=== PATIENT | male | born 1975 | race Caucasian/White ===

== ENCOUNTER 2017-05-30 11:20 | Emergency (ER) | payer MEDICAID ==
[~2017-05-30] VITALS: Ht 175.3 cm; Wt 59.0 kg
[~2017-05-30 11:20] MED LIST: AUGMENTIN 500 M1 TAB PO; CIPRO 500MG TA500 MG PO; CLONAZEPAM 1MG T1 MG PO; ETODOLAC400 MG PO; FIORICET 325 MG1 TAB PO; FLEXERIL10 MG PO; HYDROCODONE-APA1 TA1 PO; HYDROCODONE1 TABLET PO; IBUPROFEN200 MG PO; IBUPROFEN800 MG PO; KEFLEX 500MG.500 MG PO; LORTAB 5/500 501 TAB PO; MEDROL 4MG. DOSE4 MG PO; NOMEDS *; ONDANSETRON ODT4 MG PO; OXYCODONE5 MG PO; PEPCID40 MG PO; PHENERGAN 25MG.25 M1 PO; PREDNISONE 20MG20 MG PO; RANITIDINE150 M1 PO; SILVADENE CREAM50 GM TP; ULTRAM 50 MG TA50 MG PO; ZOFRAN ODT4 MG PO
[2017-05-30 11:35] LABS: URINE BILIRUBIN - DIPSTICK NEGATIVE (NEG); URINE BLOOD NEGATIVE (NEG)
[2017-05-30 11:38] LABS: HEMOGLOBIN 15.7 g/dL (14.1-18.0); LYMPH # 1.9 K/mm3 (0.7-4.5); LYMPH % 21.8 % (10-50)
--- NOTE | 2017-05-30 11:44 | Emergency Room Report ---
History of Present Illness Time Seen by 113Sonia Presenting Problem in Triage Pt arrived:Walked Presenting Problem:PT C/O PAIN IN THE RIGHT LOWER QUAD THAT STARTED ON TUESDAY. 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 N Clinical Suspician of Infection? N Mental Status: 1 - Regular (Normal Baseline) Sepsis Risk:Low Sepsis Risk Have you (or family members/close friends) recently traveled outside the [place]? N If Yes, where/when: Have you had exposure to infectious disease within the past month? N TB? Other? Specify: Patient reports a six day history of right lower quadrant abdominal pain, worse over the past three to four days, and seen at an outside hospital with CT w/o contrast done, negative for appendicitis. His pain is persistent, localized, and associated with decreased appetite, so he was referred to the ED today by his nurse practitioner. No vomiting, no diarrhea, moving bowels well with no blood from above or below. Reports fever one week ago, and no fever since that time. No cough. ALLERGIES Coded Allergies: No Known Allergies (05/30/17) Home Medications Reported Medications No Known Home Medications History Medical History General CAD? No Angina: Yes [place]: No Hypertension? No Hyperlipidemia? No CHF? No DVT? No PE? No COPD? No Asthma? No Anemia? No GERD? No Gastric ulcers? No GI Bleed? No Hernia? No Thyroid Problems? No Hypothyroidism? No CVA? No Seizures? Yes Diabetes? No Renal Insuffiency? No End Stage Renal Disease? No UTI? No Stones? No BPH? No GB Disease: No Nephritic Syndrome? No Asplenia? No Hepatitis? Yes Sickle Cell Disease? No Arthritis? No Migraines? No Cataracts? No Glaucoma? No MRSA? No HIV? No TB? No Anxiety? No Depression? No Cancer? No More? 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 Immunization Hx DT/Tetanus 1-4 Years Ago Surgical Hx Previous Surgery?Y BACK SURG Social History Smoking Hx Smoker: Current Every Day Smoker Tobacco: Yes Type Cigarettes Packs/day < 1 Pack Alcohol Alcohol: No Review of Systems All Other Systems Reviewed and Negative Gastrointestinal see HPI Physical Exam Vital Signs Vital Signs Date Time Temp Pulse Resp B/P Pulse O2 O2 Flow FiO2 Ox Delivery Rate 05/30 1418 98.1 69 14 122/70 97 05/30 1351 98.1 69 14 122/70 97 05/30 1335 14 05/30 1222 69 14 125/77 99 05/30 1217 16 05/30 1123 98.1 87 16 98 General Appearance normal appearance, WD/WN, no apparent distress Eye Exam - bilateral eye normal exam, bilateral eye PERRL, bilateral eye EOMI Neck normal inspection, non-tender, supple, full range of motion Respiratory Status Yes: trachea midline, chest symmetrical, non tender chest. No: respiratory distress, tender on palpation, use of accessory muscles, pain on inspiration, pain on expiration, productive cough, non productive cough. Lung Sounds bilateral: normal breath sounds, lungs clear. Cardiovascular normal exam, regular rate/rhythm, no peripheral edema, no gallop, no JVD, no murmur, no rub Gastrointestinal normal bowel sounds, normal exam, soft, no organomegaly, no pulsatile mass, no guarding, no rebound, tenderness, mildly tender, RLQ; neg psoas or obturator signs. No rebound or guarding. Back no CVA tenderness, bowel/bladder continent, gait normal Extremities non-tender, normal range of motion, normal inspection, normal capillary refill, no pedal edema Strength 5 Upper Ext (L), 5 Upper Ext (R), 5 Lower Ext (L), 5 Lower Ext (R) Neurologic alert, normal exam, no motor/sensory deficits, oriented x 3 Glascow Coma Scale Glascow Coma Scale Response Value EYE response: 4 Spontaneously 4 MOTOR response: 6 OBEYS 6 VERBAL response: 5 Oriented & Converses 5 Total 15 Skin intact, normal color, warm/dry Medical Decision Making LABS/Meds/Orders Pt receiving controlled substance in ED? No Results/Orders Laboratory Tests 05/30/17 1130: Sodium 137, Potassium 4.5, Chloride 98, Carbon Dioxide 30, BUN 11, Creatinine 0.8, Estimated Creat Clear 103, Estimated GFR (MDRD) 108, Glucose 122 H, Calcium 9.3, Total Bilirubin 0.3, AST 44 H, ALT 59, Alkaline Phosphatase 93, Total Protein 9.2 H, Albumin 4.3, Globulin 4.9 H, Albumin/Globulin Ratio 0.9 L, Amylase 61, Lipase 345, WBC 8.5, RBC 5.78, Hgb 15.7, Hct 48.3, MCV 83.5, RDW 13.4, Plt Count 274, MPV 6.7 L, Gran % 72.1, Gran # 6.1, Lymphocytes % 21.8, Monocytes % 4.1, Eosinophils % 1.5, Basophils % 0.5, Lymphocytes # 1.9, Monocytes # 0.4, Eosinophils # 0.1, Basophils # 0.0, PUBS MCHC 32.4, MCH 27.1, Urine Color YELLOW, Urine Appearance CLEAR, Urine pH 6.5, Ur Specific [place] 1.010, Urine Protein NEGATIVE, Urine Ketones NEGATIVE, Urine Blood NEGATIVE, Urine Nitrate NEGATIVE, Urine Bilirubin NEGATIVE, Urine Urobilinogen 0.2, Ur Leukocyte Esterase NEGATIVE, Urine WBC OCC, Ur Squamous Epith Cells OCC, Urine Bacteria 2+, Urine Mucus 1+, Urine Glucose NEGATIVE Current Medication Orders Sig/Javan Start time Last Medication Dose Route Stop Time Status Admin Ketorolac 15 MG ONCE ONE 05/30 1345 DC 05/30 Tromethamine IV 05/30 1346 1335 Ketorolac 0 .STK-MED ONE 05/30 1328 DC Tromethamine .ROUTE Ketorolac 15 MG ONCE ONE 05/30 1215 DC 05/30 Tromethamine IV 05/30 1216 1217 Ondansetron HCl 4 MG ONCE ONE 05/30 1215 DC 05/30 IV 05/30 1216 1218 Ketorolac 0 .STK-MED ONE 05/30 1214 DC Tromethamine .ROUTE Ondansetron HCl 0 .STK-MED ONE 05/30 1213 DC .ROUTE Diatrizoate Meglum/ 30 ML ONCE ONE 05/30 1130 DC 05/30 Diatrizoate Sod PO 05/30 1131 1132 Sodium Chloride 10 ML PRN PRN 05/30 1130 AC IV 05/31 1126 Diatrizoate Meglum/ 0 .STK-MED ONE 05/30 1129 DC Diatrizoate Sod .ROUTE Orders Procedure Date/time Status DIET-NOTHING BY MOUTH 05/[address] ABD/PELVIS REQ 05/30 113 Complete CULTURE, URINE 05/30 1130 Active IV SALINE LOCK 05/30 1126 Active URINALYSIS/COMPLETE 05/30 1126 Complete LIPASE 05/30 1126 Complete CBC WITH AUTO DIFF 05/30 112 Complete CHEM 12 PROFILE 05/30 112 Complete AMYLASE 05/30 1126 Complete XRAY/CT/US XRAY/CT/US XRAY abdomen, pelvis CT interpretation by reviewed by me (report reviewed) Time results known: 1416 CT Results normal/NAD (stool; normal o/w) Departure Departure Time of Disposition 1416 Disposition DC Home or Self Care(routine) Clinical Impression Primary Impression: RLQ abdominal pain Condition STABLE Referrals Willian CORADO,Jean Claude Baeza Patient Instructions Acute Abdominal Pain Additional Instructions Clear liquids for a day, then recheck by Liu in one to two days; Rx Bentyl Discharge Counseling Counseled pt/family regarding diagnosis, test results, medications/RX, home care, follow up needs Prescriptions Current Visit Scripts Dicyclomine Hcl (Bentyl (Generic) 10MG Capsule) 10 MG PO Q8HP PRN cramping abdominal pain #10 CAP ED Critical Care Critical Care No at 141
[2017-05-30 11:45] LABS: URINE SQUAMOUS CELLS OCC #/hpf (OCC)
--- OUTSIDE RECORDS SUMMARY | 2017-05-30 12:10 | External Medical Summary Rpt ---
Author Author , RAMAKRISHNA DURBIN Address Unknown Phone [email or web address] Care Team Providers Care Field Reviewer Name Role Phone [employer] Unavailable Unavailable INC, [employer] Unavailable Unavailable INC, [employer] ALLRAN JR MILES, ALLRAN Unavailable Unavailable JR MILES BESSON HAO, BESSON Unavailable Unavailable HAO JC JENA, Unavailable Unavailable JC JENA ADAMARIS BAILON Unavailable Unavailable [facility] [place], [facility] [place] FRYMAN, FRYMAN Unavailable Unavailable FRYMAN EUG, FRYMAN Unavailable Unavailable EUG JR ELENA DUTTON, Unavailable Unavailable JR ELENA DUTTON [facility] Unavailable Unavailable INC, [facility] Un[facility] Un[facility], [facility], Unavailable Unavailable [facility] LUCERO ESPOSITO, LUCERO ESPOSITO Unavailable Unavailable [facility] Unavailable Unavailable [facility], [facility] YASMEEN GALVAN Unavailable Unavailable YASMEEN GALVAN Unavailable Unavailable [facility] Unavailable Unavailable INTERNAL MED, [facility] Jean Claude Dorsey MD, Unavailable Unavailable Jean Claude Dorsey MD [facility] Unavailable Unavailable ASSOCIAT, [facility] Unavailable Unavailable PLL[facility], [facility] RENUSCH, RENUSCH Unavailable Unavailable [facility], Unavailable Unavailable [facility] SOTINGEANU VERONIKA, Unavailable Unavailable SOTINGEANU VERONIKA [facility] Un[facility], [facility] Purpose Continuity of Care Document - 03-13-2013 through 2016 Problems Code Diagnosis DOS Provider Status [id number] PAIN IN 01-27-2017 [facility] [id number] UNSPECIFIED 01-27-2017 [facility] [employer] SHOULDER S INC JOINT INITIAL ENC Z720 TOBACCO USE 01-27-2017 [facility] N320 BLADDER-NEC 11-26-2016 [facility] R109 UNSPECIFIED 11-26-2016 [facility] L723 SEBACEOUS 10-11-2016 [facility] R1032 LEFT LOWER 08-09-2016 [facility] R112 NAUSEA WITH 08-09-2016 [facility] U[facility]PECIFIED [facility] ASS R319 HEMATURIA 08-09-2016 [facility] UNSPECIFIED PHYSICIANS, [facility] L559 SUNBURN 03-31-2016 [facility]PECIFIED [facility], [facility] I10 ESSENTIAL 02-05-2016 [facility] P N R079 CHEST PAIN 02-05-2016 [facility] UNSPECIFIED PHYSICIANS, [facility] K920 HEMATEMESIS 12-11-2015 [facility] R1012 LEFT UPPER 12-11-2015 [facility] PAIN GROUP R1013 EPIGASTRIC 12-11-2015 [facility] PAIN [facility]YSIC[facility]ANS GROUP E870 HYPEROSMOLA 12-03-2015 [facility] LITY AND PHYSICIANS HYPERNATREM GROUP [place] R531 WEAKNESS 12-03-2015 [facility] K921 MELENA 11-27-2015 [facility] Q619 CYSTIC 11-27-2015 [place] [facility] DISEASE INC UNSPECIFIED B1920 UNS VIRAL 11-24-2015 [facility] HEPATITIS C PHYSICIANS WITHOUT GROUP HEPATIC COMA 39695 OTHER 01-22-2015 [facility] 26075 OTHER 01-22-2015 [facility] 7840 HEADACHE 01-22-2015 [facility] 7905 OTHER 01-11-2015 [place] NON[facility]IFIC [facility] ABNORMAL INTERNAL SERUM MED ENZYME LEVELS 68928 OTHER&UNSPE 01-11-2015 [facility] NONSPECIFIC INC IMMUNOLOGIC AL FINDINGS 40563 ESOPHAGEAL 01-03-2015 [place] REFLUX [facility] INTERNAL MED 7850 UNSPECIFIED 01-03-2015 [place] [facility] TACHYCARDIA INTERNAL MED 63185 UNSPECIFIED 12-30-2014 [facility] CYSTIC INC KIDNEY DISEASE 17700 HEMATURIA 12-22-2014 [facility] UNSPECIF[facility] MEDICAL IMAGING ASS 94802 ABDOMINAL 12-22-2014 [facility] PA[facility] OTHER MEDICAL SPECIFIED IMAGING ASS SITE 2449 UNSPECIFIED 12-14-2014 ARANAKalina CLEMENTE HYPOTHYROID ISM 214.1 214.1 03-13-2013 [place] LIPOMA SKIN [facility] 716.96 716.96 03-13-2013 [facility] ARTHROPATHY [facility] G40.909 EPILEPSY, UNSP, NOT INTRACTABLE , WITHOUT STATUS EPILEPTICUS J01.90 ACUTE SINUSITIS, UNSPECIFIED K75.9 INFLAMMATOR Y LIVER DISEASE, UNSPECIFIED K92.0 HEMATEMESIS M25.511 PAIN IN RIGHT SHOULDER N20.1 CALCULUS OF URETER R07.89 OTHER CHEST PAIN R10.9 UNSPECIFIED ABDOMINAL PAIN R31.9 HEMATURIA, UNSPECIFIED Allergies, Adverse Reactions, Alerts Type Allergy to substance Adverse Reaction to Substance Substance Reaction Severity INGREDIENT: NO KNOWN Unknown Unknown - NO KNOWN DRUG ALLERGY Medications Na ND Rx Da Fi Fi Am Da Di Ph RX Ph St me C No te ll ll ou ys ag ar # ys at rm s nt no ma ic us Or Da si cy ia de te s n re d CY 00 03 04 20 10 00 EA Ac CL 37 -2 -[address] ti OB 80 4- 1- 00 00 SI ve EN 75 20 20 48 DE ZA 11 17 17 11 HI 0 24 PH IN AR E MA 10 CY MG OF CY TA NT BL HI ET AN A IN C IB 53 03 04 90 30 00 EA Ac UP 74 -2 -[address] ti RO 60 2- 4- 00 00 SI ve FE 46 20 20 48 DE N 60 17 17 07 80 5 71 PH 0 AR MG MA CY TA BL OF ET CY NT HI AN A IN C PA 68 01 02 30 30 00 TO Ac RO 38 -2 -1 .0 00 TA ti XE 20 3- 7- 00 06 L ve TI 09 20 20 85 CA NE 80 17 17 22 RE 1 72 HC PH L AR 20 MA CY MG #1 TA BL ET WV 65 12 12 0 20 10 EA 46 SC Ac NO 86 -1 -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 77 YM ti AM 60 5- 5- 00 SI 73 AN ve ET 27 20 20 0 DE HO 20 16 16 EU XA 5 PH GO ZO AR ND LE MA A -T CY F MP OF DS CY TA NT BL HI ET AN A MU 00 12 12 0 22 5 EA 46 FR Ac PI 09 -0 -[address] 77 YM ti RO 31 5- 5- 00 SI 74 AN ve CI 01 20 20 0 DE N 04 16 16 EU 2% 2 PH GO AR ND OI MA A NT CY F ME NT OF CY NT HI AN A TR 00 05 0 No AM 09 -1 AD 30 4- Lo OL 05 20 ng 80 13 er 50 1H MG Ac ti TA ve BL ET TA KE HO ME IN 51 05 0 No DO 07 -1 ME 90 4- Lo TH 19 20 ng AC 02 13 er IN 0 Ac 25 ti ve MG CA PS UL E Vital Signs 03-13-2013 21:28 Name Value Interpretat Reference Comment ion Range BP 82 mm[Hg] Diastolic BP Systolic 110 mm[Hg] Heart 92 /min Rate/Pulse O2% 99 % Respiratory 18 /min Rate Results Labs Lab Lab Date Result Refere Interp Status Commen Order Detail nces retati t Range on Urinalysis dipstick W Reflex Microscopic panel in Urine (05-30-2017 11:30) Bacteri 2+ O complet a 017 ed [Presen 11:30 ce] in Urine sedimen t by Light microsc opy Mucus 1+ NONE complet [Presen 017 ed ce] in 11:30 Urine sedimen t by Light microsc opy Epithel OCC OCC complet ial 017 ed cells.s 11:30 quamous [Presen ce] in Urine sedimen t by Microsc opy high power field Urinalysis dipstick W Reflex Microscopic panel in Urine (05-30-2017 11:30) Appeara CLEAR CLEAR complet nce of 017 ed Urine 11:30 Bilirub NEGATIV NEG complet in 017 E ed [Presen 11:30 ce] in Urine by Test strip Erythro NEGATIV NEG complet cytes 017 E ed [Presen 11:30 ce] in Urine Color YELLOW YELLOW complet of 017 ed Urine 11:30 Ketones NEGATIV NEG complet 017 E ed [Presen 11:30 ce] in Urine by Automat ed test strip Mucus NEGATIV NEG complet [Presen 017 E ed ce] in 11:30 Urine sedimen t by Light microsc opy Nitrite NEGATIV NEG complet 017 E ed [Presen 11:30 ce] in Urine by Test strip Urobili 0.2 NEG complet nogen 017 ed [Presen 11:30 ce] in Urine by Test strip Bacteria identified in Urine by Culture (11-26-2016 18:40) Collect VOID complet ion 017 ed method 18:40 [Type] of Specime n STATUS PRELIMI complet 017 NARY ed 18:40 RESULT: NO complet 017 GROWTH ed 18:40 1ST DAY SEND Y complet PHARM/I 017 ed C 18:40 STATUS FINAL complet 017 ed 18:40 RESULT: NO complet 017 GROWTH ed 18:40 2ND DAY RESULTE JBG complet D BY 017 ed 18:40 SEND TO Y complet ER 017 ed 18:40 Urinalysis dipstick W Reflex Microscopic panel in Urine (11-26-2016 18:40) Color LT. NL: complet of 017 YELL Negativ ed Urine 18:40 e Appeara CLEAR NL: complet nce of 017 Negativ ed Urine 18:40 e Glucose NEG NL: complet 017 Negativ ed [Mass/v 18:40 e olume] in Urine by Test strip Bilirub NEG NL: complet in 017 Negativ ed [Presen 18:40 e ce] in Urine by Test strip Ketones NEG NL: complet 017 Negativ ed [Presen 18:40 e ce] in Serum or Plasma Specifi <=1.005 NL: complet c 017 1.00 >= ed gravity 18:40 1.030 of Urine Hemoglo 3+ NL: Abnorma complet bin 017 Negativ l ed [Presen 18:40 e ce] in Urine by Test strip pH of 6.0 NL: complet Urine 017 ed by Test 18:40 strip Protein NEG NL: complet 017 Negativ ed [Presen 18:40 e ce] in Urine by Test strip Urobili 0.2 NL: 0.2 complet nogen 017 - 1.0 ed [Mass/v 18:40 olume] in Urine by Test strip Nitrite NEG NL: complet 017 Negativ ed [Presen 18:40 e ce] in Urine by Test strip Leukocy NEG NL: complet ivan 017 Negativ ed [#/volu 18:40 e me] in Blood by Automat ed count Leukocy RARE NL: complet ivan 017 NEGATIV ed [#/volu 18:40 E me] in Blood by Automat ed count Erythro RARE NL: complet cytes 017 NEGATIV ed [#/volu 18:40 E me] in Blood by Automat ed count Epithel RARE NL: complet ial 017 NEGATIV ed cells 18:40 E [#/area ] in Urine sedimen t by Microsc opy high power field Bacteri NEGATIV NL: complet a 017 E NEGATIV ed [#/area 18:40 E ] in Urine sedimen t by Microsc opy high power field Additio VOIDED complet nal 017 ed comment 18:40 s RFC CULTURE C&S Abnorma complet SETUP 017 ORDER l ed 18:40 Procedures Procedure DOS Code Location Performer Comment THERAPEUT 32651 [facility] PROPHYLAC INC INC TIC/DX INJECTION SUBQ/IM SHOULDER L3650 [facility] 7 TECHNOLOG TECHNOLOG FIG 8 IES INC IES INC ABDUCT RESTRAINE R PREFAB UNCLASSIF J3490 [facility] IED DRUGS 7 [facility] INC INC RADEX 29542 [facility] SHOULDER 7 [facility] COMPLETE INC INC MINIMUM 2 VIEWS THERAPEUT 69267 [facility] IC 7 PHYSICIAN PHYSICIAN PROPHYLAC S GROUP S GROUP TIC/DX INJECTION SUBQ/[place] [address] [facility] ABDOMEN & 7 PELVIS RADIOLOGY RADIOLOGY W/[place] [address] [facility] ABDOMEN & 6 MEDICAL JEAN PELVIS IMAGING W/O ASS CONTRAST MATERIAL URNLS DIP 96312 [facility] 6 [facility] STICK/TAB INC INC [place] [address] [facility] LIPASE 6 [place] [address] T[facility] INFUSION 6 [facility] THERAPY/P INC INC ROPHYLAXI S /DX 1ST TO 1 HR THERAPEUT 59638 T[facility] IC 6 [facility] INJECTION INC [place] [address] [facility] AMYLASE 6 [facility] INC INC COMPREHEN 87532 [facility] SIVE 6 [facility] METABOLIC INC INC PANEL BLOOD 65792 [facility] COUNT 6 [facility] COMPLETE INC INC AUTO&AUTO DIFRNTL WBC UNCLASSIF J3490 [facility] IED DRUGS 6 [facility] INC INC UNCLASSIF J3490 T[facility] IED DRUGS 6 [facility] INC INC BLOOD 94700 [facility] COUNT 6 [facility] COMPLETE INC INC AUTO&[place] [address] [facility] TROPONIN 6 [facility] QUANTITAT INC INC VICKY ECG 90333 T[facility] ROUTINE 6 [facility] ECG INC INC W/LEAST 12 LDS TRCG ONLY W/O I&R CREATINE 60633 [facility] KINASE 6 [facility] TOTAL INC INC ECG 16117 [facility] AMEZQUITA ROUTINE 6 [facility] W/LEAST P 12 LDS I&R ONLY CREATINE 51918 [facility] KINASE MB 6 [facility] FRACTION INC INC ONLY RADIOLOGI 78540 T[facility] C 6 [facility] EXAMINATI INC INC ON CHEST [place] FRONTAL COMPREHEN 59986 [facility] SIVE 6 [facility] METABOLIC INC INC PANEL COMPREHEN 70335 T[facility] SIVE 6 [facility] METABOLIC INC INC PANEL COLLECTIO 53176 [facility] N VENOUS 6 [facility] BLOOD INC INC VENIPUNCT URE BLOOD 00405 [facility] COUNT 6 [facility] COMPLETE INC INC AUTO&AUTO DIFRNTL WBC BLOOD 43337 [facility] ECSOTO COUNT 6 [facility] COMPLETE INC INC AUTO&AUTO DIFRNTL WBC LOCM Q9967 [facility] 300-399 6 [facility] MG/ML INC INC IODINE CONCENTRA TION PER ML INJECTION J2405 [facility] 6 [facility] ONDANSETR INC INC ON HCL PER 1 MG COMPREHEN 44538 [facility] SIVE 6 [facility] METABOLIC INC INC PANEL THROMBOPL 22757 [facility] ASTIN 6 [facility] TIME INC INC PARTIAL PL[place] [address] [facility] ABDOMEN & 6 [facility] PELVIS INC INC W/[place] [address] [facility] LIPASE 6 [facility] INC INC PROTHROMB 41372 [facility] IN TIME 6 [facility] INC INC URNLS DIP 10417 [facility] STICK/TAB INC [place] [address] [facility] INFUSION 6 [facility] THERAPY/P INC INC ROPHYLAXI S /DX 1ST TO 1 HR COMPREHEN 36309 [facility] SIVE 6 [facility] METABOLIC INC INC PANEL INF AGT G0432 T[facility] AB DETECT 6 [facility] EIA TECH INC INC HIV-1&/HI V-2 SCR HEPATITIS 54063 [facility] C 6 [facility] [place] [address] T[facility] THYROID 6 [facility] STIMULATI INC INC NG HORMONE TSH HEPATITIS 65658 [facility] A 6 [facility] ANTIBODY INC INC HAAB COLLECTIO 38546 T[facility] N VENOUS 6 [facility] BLOOD INC INC VENIPUNCT URE COMPREHEN 85749 [facility] SIVE 6 [facility] [place] [address] [facility] THYROXINE 6 [facility] [place] [address] [facility] AMYLASE 6 [facility] INC INC LIPID 07177 [facility] PANEL 6 [facility] INC INC BLOOD 64307 [facility] COUNT 6 [facility] COMPLETE INC INC AUTO&AUTO DIFRNTL WBC HEPATITIS 37805 [facility] B CORE 6 [facility] ANTIBODY INC INC HBCAB TOTAL HEPATITIS 13862 [facility] [place] SURF 6 [facility] [place] [address] [facility] HEPATITIS 6 [facility] B INC INC SURFACE ANTIGEN BILIRUBIN 92789 [facility] DIRECT 6 [facility] INC INC MRI BRAIN 40141 [facility] BRAIN 5 [facility] STEM W/O INC INC CONTRAST MATERIAL ELECTROEN 86457 [facility] CEPHALOGR 5 [facility] AM W/REC INC INC AWAKE&VALARIE WSY COLLECTIO 11378 T[facility] N VENOUS 5 [facility] [place] [address] [facility] THYROID 5 [facility] STIMULATI INC INC NG HORMONE TSH COMPREHEN 99561 T[facility] SIVE 5 [facility] METABOLIC INC INC PANEL IADNA 03727 [facility] HEPATITIS 5 [facility] C QUANT INC INC & [place] [address] [facility] HEAD/BRAI 5 MEDICAL JENA N W/O IMAGING CONTRAST ASS MATERIAL BLOOD 62837 [facility] COUNT 5 [facility] COMPLETE INC INC AUTO&AUTO DIFRNTL WBC 25 38501 [facility] HYDROXY 5 [facility] INCLUDES INC INC FRACTIONS IF PERFORMED CYANOCOBA 68923 [facility] DARREN 5 [facility] [address] [facility] ABDOMINAL 5 [facility] REAL INC [place] TIME W/[place] [address] [facility] ABDOMINAL 5 MEDICAL JENA REAL IMAGING TIME ASS W/[place] [address] T[facility] GREENE ABDOMEN & 5 MEDICAL JENA PELVIS IMAGING W/O ASS CONTRAST MATERIAL SBSQ 25124 [facility] 5 CARE/DAY 15 MINUTES INITIAL 51647 [facility] INPATIENT 5 CONSULT NEW/ESTAB PT 20 MIN Encounters Encounter Start End Date Code Location Performer Type Date EMERGENCY 13690 [facility] CUEVAS 7 7 PHYSICIAN DEPARTMEN S, [facility] T VISIT HIGH/URGE NT SEVERITY EMERGENCY 23761 [facility] 7 7 [facility] LOW/MODER SEVERITY [facility] - 7 7 [facility] OUTPATIEN [facility] - 7 7 [facility]PATI[facility] OFFICE 00094 [facility] T VISIT 5 INC MINUTES OFFICE 10870 [facility] BET[facility]INA [facility] 7 7 PHYSICIAN T VISIT S GROUP 25 MINUTES EMERGENCY 47253 [facility] 7 7 [place] [facility] T VISIT PHYS HIGH/URGE NT SEVERITY OFFICE 68249 [facility]SE[facility]T [facility] OUTPATIEN 6 6 PHYSICIAN MILES T VISIT S GROUP 10 MINUTES EMERGENCY 13668 [facility] 6 6 [facility] DEPARTMEN INC T VISIT HIGH/URGE NT SEVERITY HOSPITAL [facility] - 6 6 [facility] OUTPATIEN [facility] T EMERGENCY 20288 V[facility]CTOR PASCAL DEPT 6 6 PHYSICIAN U VERONIKA VISIT S, [facility] HIGH SEVERITY& THREAT [facility]IST - 6 6 [facility] OUTPATIEN INC T EMERGENCY 55219 [facility] 6 6 [facility] V[facility]IT LIMITED/M INOR PROB EMERGENCY 64425 [facility] PASCAL 6 6 PHYSICIAN U VERONIKA [facility] S, [facility] T VISIT MODERATE SEVERITY HOSPITAL [facility] - 6 6 [facility] OUTPATIEN INC T EMERGENCY 42476 VÍCTOR ESPOSITO DEPT 6 6 PHYSICIAN VISIT S, [facility] HIGH SEVERITY& THREAT [facility] EMERGENCY 84979 [facility] 6 6 [facility] DEPARTMEN INC T VISIT MODERATE SEVERITY OFFICE 90971 [facility] OUTPATIEN 6 6 PHYSICIAN EUG T VISIT S GROUP 15 MINUTES HOSPITAL [facility] - 6 6 [facility] OUTPATIEN INC T OFFICE 77242 [facility] SCHULSTAD OUTPATIEN 6 6 PHYSICIAN CAM T NEW 30 S GROUP MINUTES OFFICE 08999 [facility] OUTPATIEN 6 6 PHYSICIAN EUG T VISIT S GROUP 15 MINUTES EMERGENCY 21718 [facility] 6 6 [facility] DEPARTMEN INC T VISIT HIGH/URGE NT SEVERITY HOSPITAL [facility] - 6 6 [facility] OUTPATIEN INC T EMERGENCY 65779 VÍCTOR DTUTON DEPT 6 6 PHYSICIAN JR DURGAZ [facility]IGH SEVER[facility]& THREAT FUNJ OFFICE 16230 [facility] OUTPATIEN 6 6 PHYSICIAN EUG T VISIT S GROUP 15 MINUTES HOSPITAL [facility] - 6 6 [facility] OUTPATIEN INC T HOSPITAL [facility] - 6 6 [facility] OUTPATIEN INC T OFFICE 17877 [facility] OUTPAT[facility]EN 6 6 PHYSICIAN EUG T NEW 30 S GROUP MINUTES HOSPITAL [facility] - 5 5 [facility] OUTPATIEN INC T HOSPITAL [facility] - 5 5 [facility] OUTPATIEN INC T OFFICE 78014 [facility] 5 5 [place] [facility] VISIT INTERNAL 25 MED MINUTES OFFICE 42607 [facility] 5 5 [place] [facility] VISIT INTERNAL 25 MED MINUTES [facility] TIGIST - 5 5 [facility] OUTPATIEN [facility] OFFICE 77626 [facility] 5 5 [place] [facility] T NEW 45 INTERNAL MINUTES MED Emergency DYLON Dorsey MD (ER) 3 20:33 3 22:38 [facility]
--- OUTSIDE RECORDS SUMMARY | 2017-05-30 12:10 | External Medical Summary Rpt ---
Author Author , RAMAKRISHNA DURBIN Address Unknown Phone [email or web address] Care Team Providers Care Railroad Engineer Name Role Phone [employer] Unavailable Unavailable INC, [employer] Unavailable Unavailable INC, [employer] ALLRAN JR MILES, ALLRAN Unavailable Unavailable JR MILES BESSON HAO, BESSON Unavailable Unavailable HAO JC JENA, Unavailable Unavailable JC JENA ADAMARIS BAILON Unavailable Unavailable [facility] Unavailable [place]available [place], [facility] [place] FRYMAN, FRYMAN Unavailable Unavailable FRYMAN EUG, FRYMAN Unavailable Unavailable EUG JR ELENA DUTTON, Unavailable Unavailable JR ELENA DUTTON [facility] Unavailable Unavailable INC, [facility] Unavailable Unavailable HOSPITAL P, [facility] HOSPITAL P [facility], Unavailable Unavailable [facility] LUCERO ESPOSITO, LUCERO ESPOSITO Unavailable Unavailable [facility] Unavailable Unavailable [facility], [facility] YASMEEN GALVAN Unavailable Unavailable YASMEEN GALVAN Unavailable Unavailable [facility] Unavailable Unavailable [facility], [facility] Jean Claude Dorsey MD, Unavailable Unavailable Jean Claude Dorsey MD [facility] Unavailable Unavailable ASSOCIAT, [facility] Un[facility] Unavailable PLL[facility], [facility] RENUSCH, RENUSCH Unavailable Unavailable [facility], Unavailable Unavailable [facility] SOTINGEANU VERONIKA, Unavailable Unavailable SOTINGEANU VERONIKA [facility] Unavailable Unavailable EMERGENCY PHYS, [facility] Purpose Continuity of Care Document - 03-13-2013 through 2016 Problems Code Diagnosis DOS Provider Status [id number] PAIN IN 01-27-2017 [facility] [id number] UNSPECIFIED 01-27-2017 [facility] [employer] SHOULDER S INC JOINT INITIAL ENC Z720 TOBACCO USE 01-27-2017 [facility] N320 BLADDER-NEC 11-26-2016 [facility] R109 UNSPECIFIED 11-26-2016 [facility] L723 SEBACEOUS 10-11-2016 [facility] CYST PHYSICIANS GROUP R1032 LEFT LOWER 08-09-2016 [facility] R112 NAUSEA WITH 08-09-2016 [facility] UNSPECIFIED IMAGING ASS R319 HEMATURIA 08-09-2016 [facility] UNSPECIFIED PHYSICIANS, [facility] L559 SUNBURN 03-31-2016 [facility]PECIFIED [facility], [facility] I10 ESSENTIAL 02-05-2016 [facility] P N R079 CHEST PAIN 02-05-2016 [facility] UNSPECIFIED PHYSICIANS, [facility] K920 HEMATEMESIS 12-11-2015 [facility] GROUP R1012 LEFT UPPER 12-11-2015 [facility] PAIN GROUP R1013 EPIGASTRIC 12-11-2015 [facility] PAIN PHYSICIANS GROUP E870 HYPEROSMOLA 12-03-2015 [facility] LITY AND PHYSICIANS HYPERNATREM GROUP IA R531 WEAKNESS 12-03-2015 [facility] K921 MELENA 11-27-2015 [facility] Q619 CYSTIC 11-27-2015 [facility] DISEASE INC UNSPECIFIED B1920 UNS VIRAL 11-24-2015 [facility] HEPATITIS C PHYSICIANS WITHOUT GROUP HEPATIC COMA 81485 OTHER 01-22-2015 [facility] 44282 OTHER 01-22-2015 [facility] 7840 HEADACHE 01-22-2015 [facility] 7905 OTHER 01-11-2015 [place] [facility]IFIC [facility] ABNORMAL INTERNAL SERUM MED ENZYME LEVELS 55501 OTHER&UNSPE 01-11-2015 [facility] NONSPECIFIC INC IMMUNOLOGIC AL FINDINGS 34263 ESOPHAGEAL 01-03-2015 [place] REFLUX [facility] INTERNAL MED 7850 UNSPECIFIED 01-03-2015 [place] [facility] TACHYCARDIA INTERNAL MED 73218 UNSPECIFIED 12-30-2014 [facility] CYSTIC INC KIDNEY DISEASE 97395 HEMATURIA 12-22-2014 [facility] IM[facility] 33417 ABDOMINAL 12-22-2014 [facility] OTHER MEDICAL SPECIFIED IMAGING ASS SITE 2449 UNSPECIFIED 12-14-2014 ARANAKalina CLEMENTE HYPOTHYROID ISM 214.1 214.1 03-13-2013 [place] LIPOMA SKIN [facility] 716.96 716.96 03-13-2013 [facility] ARTHROPATHY [facility] G40.909 EPILEPSY, UNSP, NOT INTRACTABLE , WITHOUT [...] 48 DE ZA 11 17 17 11 NV 0 24 PH IN AR E MA [...] MA CY MG #1 TA BL ET TX 65 12 12 0 20 10 EA [...] Procedure DOS Code Location Performer Comment THERAPEUT 69923 [facility] PROPHYLAC INC INC TIC/DX INJECTION SUBQ/IM SHOULDER L3650 [facility] 7 TECHNOLOG TECHNOLOG FIG 8 IES INC IES INC ABDUCT RESTRAINE R PREFAB UNCLASSIF J3490 [facility] IED DRUGS 7 [facility] INC INC RADEX 45480 [facility] SHOULDER 7 [facility] COMPLETE INC INC MINIMUM 2 VIEWS THERAPEUT 28567 [facility] IC 7 PHYSICIAN PHYSICIAN PROPHYLAC S GROUP S GROUP TIC/DX INJECTION SUBQ/[place] [address] [facility] ABDOMEN & 7 [facility] RADIOLOGY W/[place] [address] [facility] ABDOMEN & 6 MEDICAL JENA PELVIS IMAGING W/O ASS CONTRAST MATERIAL URNLS DIP 21596 [facility] 6 [facility] STICK/TAB INC INC [place] [address] [facility] LIPASE 6 [place] [address] T[facility] INFUSION 6 [facility] THERAPY/P INC INC ROPHYLAXI S /DX 1ST TO 1 HR THERAPEUT 89350 [facility] IC 6 [facility] INJECTION [place] [address] [facility] AMYLASE 6 [facility] INC INC COMPREHEN 40173 [facility] SIVE 6 [facility] METABOLIC INC INC PANEL BLOOD 16266 [facility] COUNT 6 [facility] COMPLETE INC INC AUTO&AUTO DIFRNTL WBC UNCLASSIF J3490 [facility] IED DRUGS 6 [facility] INC INC UNCLASSIF J3490 T[facility] IED DRUGS 6 [facility] INC INC BLOOD 11924 [facility] COUNT 6 [facility] COMPLETE INC INC AUTO&[place] [address] [facility] TROPONIN 6 [facility] QUANTITAT INC INC VICKY ECG 86585 T[facility] ROUTINE 6 [facility] ECG INC INC W/LEAST 12 LDS TRCG ONLY W/O I&R CREATINE 81215 [facility] KINASE 6 [facility] TOTAL INC INC ECG 14664 [facility] AMEZQUITA ROUTINE 6 [facility] W/LEAST P 12 LDS I&R ONLY CREATINE 33187 [facility] KINASE MB 6 [facility] FRACTION INC INC ONLY RADIOLOGI 61103 [facility] C 6 [facility] EXAMINATI INC INC ON CHEST [place] FRONTAL COMPREHEN 27552 [facility] SIVE 6 [facility] METABOLIC INC INC PANEL COMPREHEN 99052 [facility] SIVE 6 [facility] METABOLIC INC INC PANEL COLLECTIO 05254 [facility] N VENOUS 6 [facility] BLOOD INC INC VENIPUNCT URE BLOOD 81384 [facility] COUNT 6 [facility] COMPLETE INC INC AUTO&AUTO DIFRNTL WBC BLOOD 38876 [facility] COUNT 6 [facility] COMPLETE INC INC AUTO&AUTO DIFRNTL WBC LOCM Q9967 [facility] 300-399 6 [facility] MG/ML INC INC IODINE CONCENTRA TION PER ML INJECTION J2405 [facility] 6 [facility] ONDANSETR INC INC ON HCL PER 1 MG COMPREHEN 14577 [facility] SIVE 6 [facility] METABOLIC INC INC PANEL THROMBOPL 38315 [facility] ASTIN 6 [facility] TIME INC INC PARTIAL PLAS[place] [address] [facility] ABDOMEN & 6 [facility] PELVIS INC [place] [address] [facility] LIPASE 6 [facility] INC INC PROTHROMB 21738 [facility] IN TIME 6 [facility] INC INC URNLS DIP 56185 [facility] ESC[facility] 6 [facility] STICK/TAB INC [place] [address] [facility] INFUSION 6 [facility] THERAPY/P INC INC ROPHYLAXI S /DX 1ST TO 1 HR COMPREHEN 96508 [facility] SIVE 6 [facility] METABOLIC INC INC PANEL INF AGT G0432 [facility] AB DETECT 6 [facility] EIA TECH INC INC HIV-1&/HI V-2 SCR HEPATITIS 04672 [facility] C 6 [facility] [place] [address] [facility] THYROID 6 [facility] STIMULATI INC INC NG HORMONE TSH HEPATITIS 26126 [facility] A 6 [facility] ANTIBODY INC INC HAAB COLLECTIO 23163 T[facility] N VENOUS 6 [facility] BLOOD INC INC VENIPUNCT URE COMPREHEN 09963 [facility] SIVE 6 [facility] [address] [facility] THYROXINE 6 [facility] [place] [address] [facility] AMYLASE 6 [facility] INC INC LIPID 05287 [facility] PANEL 6 [facility] INC INC BLOOD 03525 [facility] COUNT 6 [facility] COMPLETE INC INC AUTO&AUTO DIFRNTL WBC HEPATITIS 12962 [facility] B CORE 6 [facility] ANTIBODY INC INC HBCAB TOTAL HEPATITIS 05482 [facility] [place] SURF 6 [facility] [address] [facility] HEPATITIS 6 [facility] B INC INC SURFACE ANTIGEN BILIRUBIN 93396 [facility] DIRECT 6 [facility] INC INC MRI BRAIN 76861 [facility] BRAIN 5 [facility] STEM W/O INC INC CONTRAST MATERIAL ELECTROEN 51911 [facility] CEPHALOGR 5 [facility] AM W/REC INC INC AWAKE&VALARIE WSY COLLECTIO 59723 [facility] N VENOUS 5 [facility] [place] [address] [facility] THYROID 5 [facility] STIMULATI INC INC NG HORMONE TSH COMPREHEN 90011 [facility] SIVE 5 [facility] METABOLIC INC INC PANEL IADNA 45689 T[facility] HEPATITIS 5 [facility] C QUANT INC INC & [place] [address] [facility] HEAD/BRAI 5 MEDICAL JENA N W/O IMAGING CONTRAST ASS MATERIAL BLOOD 66744 [facility] COUNT 5 [facility] COMPLETE INC INC AUTO&AUTO DIFRNTL WBC 25 97099 [facility] HYDROXY 5 [facility] INCLUDES INC INC FRACTIONS IF PERFORMED CYANOCOBA 66930 [facility] DARREN 5 [facility] [place] [address] [facility] ABDOMINAL 5 [facility] REAL INC [place] TIME W/[place] [address] T[facility] GREENE ABDOMINAL 5 MEDICAL JENA REAL IMAGING TIME ASS W/[place] [address] TIANNA GREENE ABDOMEN & 5 MEDICAL JENA PELVIS IMAGING W/O ASS CONTRAST MATERIAL SBSQ 70981 [facility] 5 CARE/DAY 15 MINUTES INITIAL 08337 [facility] INPATIENT 5 CONSULT NEW/ESTAB PT 20 MIN Encounters Encounter Start End Date Code Location Performer Type Date EMERGENCY 07408 [facility] CUEVAS 7 7 PHYSICIAN DEPARTMEN S, [facility] T VISIT HIGH/URGE NT SEVERITY EMERGENCY 72333 [facility] 7 7 [facility] T VISIT LOW/MODER SEVERITY HOSPITAL [facility] - 7 7 [facility] OUTPATIEN [facility] - 7 7 [facility] OUTPATIEN [facility] T OFFICE 09315 [facility] T [facility]ISIT 5 INC MINUTES OFFICE 58356 [facility] BETTINA [facility] 7 7 PHYSICIAN T VISIT S GROUP 25 MINUTES EMERGENCY 86350 [facility] 7 7 [place] [facility] T VISIT PHYS HIGH/URGE NT SEVERITY OFFICE 54373 [facility] ROOSEVELT PRADO OUTPATIEN 6 6 PHYSICIAN MILES T VISIT S GROUP 10 MINUTES EMERGENCY 79682 [facility] 6 6 [facility] DEPARTMEN INC T VISIT HIGH/URGE NT SEVERITY HOSPITAL [facility] - 6 6 [facility] OUTPATIEN [facility] T EMERGENCY 87672 [facility] PASCAL DEPT 6 6 PHYSICIAN U VERONIKA VISIT S, [facility] HIGH SEVERITY& THREAT [facility] - 6 6 [facility] OUTPATIEN INC T EMERGENCY 23131 [facility] 6 6 [facility] INC T VISIT LIMITED/M INOR PROB EMERGENCY 58084 [facility] PASCAL 6 6 PHYSICIAN U VERONIKA [facility] S, [facility] T VISIT MODERATE SEVERITY HOSPITAL [facility] - 6 6 [facility] OUTPATIEN INC T EMERGENCY 44696 ÍVCTOR ESPOSITO DEPT 6 6 PHYSICIAN VISIT S, [facility] HIGH SEVERITY& THREAT [facility] EMERGENCY 45735 [facility] 6 6 [facility] DEPARTMEN INC T VISIT MODERATE SEVERITY OFFICE 56272 [facility] FRYMAN OUTPATIEN 6 6 PHYSICIAN EUG T VISIT S GROUP 15 MINUTES HOSPITAL [facility] - 6 6 [facility] OUTPATIEN INC T OFFICE 88627 [facility] [place] OUTPATIEN 6 6 PHYSICIAN CAM T NEW 30 S GROUP MINUTES OFFICE 45559 [facility] FRYMAN OUTPATIEN 6 6 PHYSICIAN EUG T VISIT S GROUP 15 MINUTES EMERGENCY 29822 [facility] 6 6 [facility] DEPARTMEN INC T VISIT HIGH/URGE NT SEVERITY HOSPITAL [facility] - 6 6 [facility] OUTPATIEN INC T EMERGENCY 52377 [facility] DUTTON DEPT 6 6 PHYSICIAN JR [facility] SE[facility]& THREAT FUNJ OFFICE 37500 [facility] FR[place]MAN OUTPATIEN 6 6 PHYSICIAN EUG T VISIT S GROUP 15 MINUTES HOSPITAL [facility] - 6 6 [facility] OUTPATIEN INC T HOSPITAL [facility] - 6 6 [facility] OUTPATIEN INC T OFFICE 47411 [facility] FRYMAN OUTPATIEN 6 6 PHYSICIAN EUG T NEW 30 S GROUP MINUTES HOSPITAL [facility] - 5 5 [facility] OUTPATIEN INC T HOSPITAL [facility] - 5 5 [facility] OUTPATIEN INC T OFFICE 38974 [facility] 5 [facility] T VISIT INTERNAL 25 MED MINUTES OFFICE 87491 [facility] 5 5 [facility] T VISIT INTERNAL 25 MED MINUTES [facility] - 5 5 [facility] OFF[facility] 88375 [facility]IEN 5 5 [facility] T NEW 45 INTERNAL MINUTES MED Emergency DYLON Dorsey MD (ER) 3 20:33 3 22:[address] [facility]
--- OUTSIDE RECORDS SUMMARY | 2017-05-30 12:12 | External Medical Summary Rpt ---
Demographics Preferred Language Italian Marital Status Unknown Yazdanism Affiliation Unknown Race Unknown Ethnic Group Unknown Author Author RAMAKRISHNA Address Unknown Phone Immunization Unable to retrieve immunization data due to connection failure with Immunization Registry. Please try again later.
--- OUTSIDE RECORDS SUMMARY | 2017-05-30 12:12 | External Medical Summary Rpt ---
Author Author , RAMAKRISHNA DURBIN Address Unknown Phone [email or web address] Care Team Providers Care Aerial Survey Technician Name Role Phone [employer] Unavailable Unavailable INC, [employer] Unavailable Unavailable INC, [employer] ALLRAN JR MILES, ALLRAN Unavailable Unavailable JR MILES BESSON HAO, BESSON Unavailable Unavailable HAO JC JENA, Unavailable Unavailable JC JENA ADAMARIS, ADAMARIS Unavailable Unavailable [facility] Unavailable Unavailable [place], [facility] [place] FRYMAN, FRYMAN Unavailable Unavailable FRYMAN EUG, FRYMAN Unavailable Unavailable JR ELENA DUMONT, Unavailable Unavailable JR ELENA DUTTON [facility] Unavailable Unavailable INC, [facility] Unavailable Unavailable HOSPITAL P, [facility], Unavailable Unavailable [facility] LUCEOR THOMSON Unavailable Unavailable [facility] Un[facility], [facility] ARANA CHYNA, ARANA CHYNA Unavailable Unavailable ARANA CHYNA, ARANA CHYNA Unavailable Unavailable [facility] Unavailable Unavailable INTERNAL MED, [facility] Unavailable Unavailable ASSOC[facility], [facility] Unavailable Unavailable PLL[facility], [facility] RENUSCH, RENUSCH Unavailable Unavailable [facility], Unavailable Unavailable [facility] SOTINGEANSoumya VERONIKA, Unavailable Unavailable SOTINGEANU VERONIKA [facility] Unavailable Unavailable EMERGENCY PHYS, [facility] Purpose Continuity of Care Document - 12-14-2014 through 2016 Problems Code Diagnosis DOS Provider Status [id number] PAIN IN 01-27-2017 [facility] [id number] UNSPECIFIED 01-27-2017 [facility] [employer] SHOULDER S INC JOINT INITIAL ENC Z720 TOBACCO USE 01-27-2017 [facility] N320 BLADDER-NEC 11-26-2016 SHANA Manriquez EMERGENCY OBSTRUCTION PHYS R109 UNSPECIFIED 11-26-2016 [facility] L723 SEBACEOUS 10-11-2016 [facility] CYST [facility]YSIC[facility] GROUP R1032 LEFT LOWER 08-09-2016 [facility] R112 NAUSEA WITH 08-09-2016 [place] UNSPECIFIED IM[facility]ING ASS R319 HEMATURIA 08-09-2016 [facility] UNSPECIFIED PHYSICIANS, [facility] L559 SUNBURN 03-31-2016 VÍCTOR UNSPECIFIED PHYSICIANS, [facility] I10 ESSENTIAL 02-05-2016 [facility] P N R079 CHEST PAIN 02-05-2016 VÍCTOR UNSPECIFIED PHYSICIANS, [facility] K920 HEMATEMESIS 12-11-2015 [facility] R1012 LEFT UPPER 12-11-2015 [facility] PAIN GROUP R1013 EPIGASTRIC 12-11-2015 [facility] PAIN PHYSICIANS GROUP E870 HYPEROSMOLA 12-03-2015 [facility] LITY AND PHYSICIANS HYPERNATREM GROUP IA R531 WEAKNESS 12-03-2015 [facility] K921 MELENA 11-27-2015 [facility] Q619 CYSTIC 11-27-2015 [facility] KIDNEY [facility] DISEASE INC UNSPECIFIED B1920 UNS VIRAL 11-24-2015 [facility] HEPATITIS C PHYSICIANS WITHOUT GROUP HEPATIC COMA 99128 OTHER 01-22-2015 [facility] 83772 OTHER 01-22-2015 [facility] 7840 HEADACHE 01-22-2015 [facility] 7905 OTHER 01-11-2015 [place] NON[facility]IFIC [facility] ABNORMAL INTERNAL SERUM MED ENZYME LEVELS 30064 OTHER&UNSPE 01-11-2015 [facility] NONSPECIFIC INC IMMUNOLOGIC AL FINDINGS 58086 ESOPHAGEAL 01-03-2015 [place] REFLUX VAL[facility] INTERNAL MED 7850 UNSPECIFIED 01-03-2015 [place] [facility] TACHYCARDIA INTERNAL MED 61600 UNSPECIFIED 12-30-2014 [facility] CYSTIC INC KIDNEY DISEASE 86629 HEMATURIA 12-22-2014 [place]PECIF[facility] 69403 ABDOMINAL 12-22-2014 [place] PAIN OTHER MEDICAL SPECIFIED IMAGING ASS SITE 2449 UNSPECIFIED 12-14-2014 YASMEEN CLEMENTE HYPOTHYROID ISM Medications Na ND Rx Da Fi Fi [...] 48 DE ZA 11 17 17 11 UT 0 24 PH IN AR E MA [...] MA CY MG #1 TA BL ET IN 65 12 12 0 20 10 EA [...] NT OF CY NT HI AN A Procedures Procedure DOS Code Location Performer Comment THERAPEUT 49350 [facility] IC [facility] PROPHYLAC INC INC TIC/DX INJECTION SUBQ/IM SHOULDER L3650 [facility] 7 TECHNOLOG TECHNOLOG FIG 8 IES INC IES INC ABDUCT RESTRAINE R PREFAB UNCLASSIF J3490 [facility] IED DRUGS 7 [facility] INC INC RADEX 53432 T[facility] SHOULDER 7 [facility] COMPLETE INC INC MINIMUM 2 VIEWS THERAPEUT 47618 [facility] IC 7 PHYSICIAN PHYSICIAN PROPHYLAC S GROUP S GROUP TIC/DX INJECTION SUBQ/[place] [address] [facility] ABDOMEN & 7 [facility] RAD[facility]OLOG[facility] W/O [place]OCI[place] [address] [facility] ESCOTO LIPASE 6 [facility] [place] [address] [facility] ABDOMEN & 6 [facility] PELVIS INC INC W/O CONTRAST MATERIAL COMPREHEN 49135 [facility] ESCOTO SIVE 6 [facility] [place] [address] [facility] ESCOTO AMYLASE 6 [facility] INC INC URNLS DIP 75258 [facility] ESCOTO 6 [facility] STICK/TAB INC [place] [address] [facility] ESCOTO INFUSION 6 [facility] THERAPY/P INC INC ROPHYLAXI S /DX 1ST TO 1 HR THERAPEUT 43721 [facility] IC [address] [facility] INJECTION INC INC IV PUSH EACH NEW DRUG BLOOD 91015 [facility] ESCOTO COUNT 6 [facility] COMPLETE INC INC AUTO&AUTO DIFRNTL WBC UNCLASSIF J3490 [facility] IED DRUGS 6 [facility] INC INC UNCLASSIF J3490 T[facility] ESCOTO IED DRUGS 6 [facility] [place] [address] [facility] ESCOTO TROPONIN [address] [facility] QUANTITAT INC INC VICKY RADIOLOGI [address] T[facility] [address] C [address] [facility] EXAMINATI INC INC ON CHEST SINGLE VIEW FRONTAL ECG 00663 [facility] AMEZQUITA ROUTINE 6 [facility] W/LEAST P 12 LDS I&R ONLY ECG 42917 [facility] ESCOTO ROUTINE [address] [facility] ECG INC INC W/LEAST 12 LDS TRCG ONLY W/O I&R BLOOD 16911 [facility] ESCOTO COUNT 6 [facility] COMPLETE INC INC AUTO&AUTO DIFRNTL WBC CREATINE 06863 [facility] ESCOTO KINASE MB 6 [facility] FRACTION INC INC ONLY COMPREHEN 27474 T[facility] ESCOTO SIVE 6 [facility] METABOLIC INC INC PANEL CREATINE 39870 [facility] ESCOTO KINASE 6 [facility] TOTAL INC INC COLLECTIO 77825 T[facility] ESCOTO N VENOUS 6 [facility] BLOOD INC INC VENIPUNCT URE COMPREHEN 76053 [facility] ESCOTO SIVE 6 [facility] METABOLIC INC INC PANEL BLOOD 94246 [facility] ESCOTO COUNT 6 [facility] COMPLETE INC INC AUTO&AUTO DIFRNTL WBC BLOOD 53785 [facility] ESCOTO COUNT 6 [facility] COMPLETE INC INC AUTO&[place] [address] [facility] ESCOTO INFUSION 6 [facility] THERAPY/P INC INC ROPHYLAXI S /DX [address] [place] [address] [place] [address] [facility] ESCOTO ABDOMEN & 6 [facility] PELVIS INC INC W/CONTRAS T MATERIAL LOCM Q9967 [facility] ESCOTO 300-399 6 [facility] MG/ML INC INC IODINE CONCENTRA TION PER ML PROTHROMB 19402 [facility] ESCOTO IN TIME 6 [facility] INC INC THROMBOPL 96641 [facility] ESCOTO ASTIN 6 [facility] TIME INC INC PARTIAL PLASMA/WH OLE BLOOD COMPREHEN 68895 [facility] ESCOTO SIVE 6 [facility] METABOLIC INC INC PANEL INJECTION J2405 [facility] ESCOTO 6 [facility] ONDANSETR INC INC ON HCL PER 1 MG URNLS DIP 21734 [facility] ESCOTO 6 [facility] STICK/TAB INC INC [place] [address] [facility] ESCOTO LIPASE 6 [facility] INC INC COMPREHEN 48460 T[facility] ESCOTO SIVE 6 [facility] METABOLIC INC INC PANEL INF AGT G0432 [facility] AB DETECT 6 [facility] EIA TECH INC INC HIV-1&/HI V-2 SCR HEPATITIS 54724 [facility] ESCOTO B CORE 6 [facility] ANTIBODY INC INC HBCAB TOTAL HEPATITIS 43089 T[facility]IST TIGIST B SURF 6 [facility] [address] T[facility] ESCOTO HEPATITIS 6 [facility] B INC INC SURFACE ANTIGEN HEPATITIS 13981 [facility] ESCOTO C 6 [facility] [place] [address] [facility] ESCOTO THYROXINE 6 [facility] TOTAL INC INC BLOOD 46020 [facility] ESCOTO COUNT 6 [facility] COMPLETE INC INC AUTO&AUTO DIFRNTL WBC COMPREHEN 18111 [facility] ESCOTO SIVE 6 [facility] METABOLIC INC INC PANEL BILIRUBIN 48523 [facility] ESCOTO DIRECT 6 [facility] INC INC LIPID 81617 [facility] ESCOTO PANEL 6 [place] [address] T[facility] ESCOTO THYROID 6 [facility] STIMULATI INC INC NG HORMONE TSH HEPATITIS 40008 [facility] ESCOTO A 6 [facility] ANTIBODY INC INC HAAB COLLECTIO 97901 T[facility] ESCOTO N VENOUS 6 [facility] [place] [address] [facility] ESCOTO AMYLASE 6 [facility] INC INC ELECTROEN 53233 [facility] CEPHALOGR 5 [facility] AM W/REC INC INC AWAKE&VALARIE WSY MRI BRAIN 69422 [place] [facility] BRAIN 5 MEDICAL [facility] STEM W/[place] [address] [place] [facility] HEAD/BRAI 5 MEDICAL J[facility] N W/O IMAGING CONTRAST ASS MATERIAL BLOOD 65542 [facility]OTO COUNT 5 [facility] COMPLETE INC INC AUTO&AUTO DIFRNTL WBC COLLECTIO 13283 [facility] ESCOTO N VENOUS 5 [facility] [place] [address] [facility] ESCOTO THYROID 5 [facility] STIMULATI INC INC NG HORMONE TSH IADNA 17438 [facility] ESCOTO HEPATITIS 5 [facility] C QUANT INC INC & REVERSE TRANSCRIP TION 25 53785 [facility] ESCOTO HYDROXY 5 [facility] INCLUDES INC INC FRACTIONS IF PERFORMED CYANOCOBA 33595 [facility] ESCOTO DARREN 5 [facility] VITAMIN INC INC B-12 COMPREHEN 39487 T[facility] ESCOTO SIVE 5 [facility] [place] [address] [facility] ESCOTO ABDOMINAL 5 [facility] REAL INC [place] TIME W/[place] [address] TIANNA JC ABDOMINAL 5 MEDICAL JENA REAL IMAGING TIME ASS W/[place] [address] TIANNA IBANEZUTCHER ABDOMEN & 5 MEDICAL JENA PELVIS IMAGING W/O ASS CONTRAST MATERIAL SBSQ 69181 [facility] 5 CARE/DAY [address] [facility] INPATIENT 5 CONSULT NEW/ESTAB PT 20 MIN Encounters Encounter Start End Date Code Location Performer Type Date EMERGENCY 49040 [facility] 7 7 [facility] DEPARTMEN INC T VISIT LOW/MODER SEVERITY EMERGENCY 84265 [facility] CUEVAS 7 7 PHYSICIAN DEPARTMEN S, [facility] T VISIT HIGH/URGE NT SEVERITY HOSPITAL [facility] - 7 7 [facility] OUTPATIEN INC T OFFICE 40297 [facility] 7 7 [facility] T VISIT 5 INC MINUTES HOSPITAL TIGIST - 7 7 [facility] OUTPATIEN INC T OFFICE 74843 [facility] BETTINA [facility] 7 7 PHYSICIAN T VISIT S GROUP 25 MINUTES EMERGENCY 71798 [facility] 7 7 [facility] EMERGENCY T VISIT PHYS HIGH/URGE NT SEVERITY OFFICE 08004 [facility] [place] [facility] OUTPATIEN 6 6 PHYSICIAN MILES T VISIT S GROUP 10 MINUTES EMERGENCY 26709 [facility]CTOR PASCAL DEPT 6 6 PHYSICIAN U VERONIKA VISIT S, [facility] HIGH SEVERITY& THREAT FUNJ EMERGENCY 80060 [facility] 6 6 [facility]LINE [facility]PITALMEN INC T VISIT HIGH/URGE NT SEVERITY HOSPITAL TIGIST - 6 6 [facility] OUTPATIEN [facility] T EMERGENCY 56467 [facility]CTOR PASCAL 6 6 PHYSICIAN U [facility] S, [facility] T VISIT MODERATE SEVERITY HOSPITAL T[facility]IST - 6 6 [facility] OUTPATIEN INC T EMERGENCY 29327 [facility] 6 6 [facility] T VISIT LIMITED/M INOR PROB EMERGENCY 15113 VÍCTOR ESPOSITO DEPT 6 6 PHYSICIAN VISIT S, [facility] HIGH SEVERITY& THREAT FUN HOSPITAL [facility]IST - 6 6 [facility] OUTPATIEN [facility] T EMERGENCY 69702 [facility] 6 6 [facility] T VISIT MODERATE SEVERITY OFFICE 47590 [facility] FRYMAN OUTPATIEN 6 6 PHYSICIAN EUG T VISIT S GROUP 15 MINUTES OFFICE 85543 [facility] FRYMAN OUTPATIEN 6 6 PHYSICIAN EUG T VISIT S GROUP 15 MINUTES OFFICE 04260 [facility] SCHULSTAD OUTPATIEN 6 6 PHYSICIAN CAM T NEW 30 S GROUP MINUTES HOSPITAL TIGIST - 6 6 [facility]PATIEN [facility] TIGIST - 6 6 [facility] OUTPATIEN INC T EMERGENCY 47638 VÍCTOR DUTTON DEPT 6 6 PHYSICIAN JR PARKER VISIT [facility] HIGH SEVERITY& THREAT [facility] 44420 [facility] 6 6 [facility] T VISIT HIGH/URGE NT SEVERITY HOSPITAL T[facility]IST - 6 6 [facility] OUTPATIEN INC T OFFICE 22672 [facility] FRYMAN OUTPATIEN 6 6 PHYSICIAN EUG T VISIT S GROUP 15 MINUTES HOSPITAL TIGIST - 6 6 [facility] OUTPATIEN INC T OFFICE 52638 [facility] FRYMAN OUTPATIEN 6 6 PHYSICIAN EUG T NEW 30 S GROUP MINUTES HOSPITAL TIGIST - 5 5 [facility]PATIEN [facility] T OFFICE 38094 [facility] 5 5 [facility] VISIT INTERNAL 25 MED MINUTES HOSPITAL TIGIST - 5 5 [facility] OFF[facility] 63654 [facility] 5 5 [facility] VISIT INTERNAL 25 MED MINUTES [facility] TIGIST - 5 5 [facility] OUTPATIEN [facility] OFFICE 83231 [facility] 5 5 [facility] NEW 45 INTERNAL MINUTES MED
--- OUTSIDE RECORDS SUMMARY | 2017-05-30 12:12 | External Medical Summary Rpt ---
Demographics Preferred Language Sami Marital Status Unknown Gnosticism Affiliation Unknown Race Unknown Ethnic Group Unknown Author Author RAMAKRISHNA Address Unknown Phone Immunization Unable to retrieve immunization data due to connection failure with Immunization Registry. Please try again later.
--- OUTSIDE RECORDS SUMMARY | 2017-05-30 12:12 | External Medical Summary Rpt ---
Author Author , RAMAKRISHNA DURBIN Address Unknown Phone [email or web address] Team Providers Care Lead Enterprise Architect Name Role Phone [employer] Unavailable Unavailable INC, [employer] Unavailable Unavailable INC, [employer] ALLRAN JR MILES, ALLRAN Unavailable Unavailable JR MILES BESSON HAO, BESSON Unavailable Unavailable HAO JC JENA, Unavailable Unavailable JC JENA ADAMARIS, ADAMARIS Unavailable Unavailable [facility] Unavailable [place]available [place], [facility] [place] FRYMAN, FRYMAN Unavailable Unavailable FRYMAN EUG, FRYMAN Unavailable Unavailable JR ELENA DUMONT, Unavailable Unavailable JR ELENA DUTTON [facility] Unavailable Unavailable INC, [facility] Unavailable Unavailable HOSPITAL P, [facility], Unavailable Unavailable [facility] LUCERO THOMSON Unavailable Unavailable [facility] Unavailable Unavailable [facility], [facility] ARANA CHYNA, ARANA CHYNA Unavailable Unavailable ARANA CHYNA, ARANA CHYNA Unavailable Unavailable [facility] Unavailable Unavailable [facility], [facility] Unavailable Unavailable [facility], [facility] Un[facility] Unavailable [facility], [facility] RENUSCH, RENUSCH Unavailable Unavailable [facility], Unavailable Unavailable [facility] SOTINGEANSoumya VERONIKA, Unavailable Unavailable SOTINGEANU VERONIKA [facility] Unavailable Unavailable EMERGENCY PHYS, [facility] Purpose Continuity of Care Document - 12-14-2014 through 2016 Problems Code Diagnosis DOS Provider Status [id number] PAIN IN 01-27-2017 [facility] [id number] UNSPECIFIED 01-27-2017 [facility] [employer] SHOULDER S INC JOINT INITIAL ENC Z720 TOBACCO USE 01-27-2017 [facility] N320 BLADDER-NEC 11-26-2016 SHANA Manriquez EMERGENCY OBSTRUCTION PHYS R109 UNSPECIFIED 11-26-2016 [facility] L723 SEBACEOUS 10-11-2016 [facility] R1032 LEFT LOWER 08-09-2016 [facility] R112 NAUSEA WITH 08-09-2016 [facility] UNSPECIF[facility] R319 HEMATURIA 08-09-2016 [facility] UNSPECIFIED PHYSICIANS, [facility] L559 SUNBURN 03-31-2016 [facility]CTOR UNSPECIFIED PHYSICIANS, [facility] I10 ESSENTIAL 02-05-2016 [facility] P N R079 CHEST PAIN 02-05-2016 [facility]CTOR UNSPECIFIED PHYSICIANS, [facility] K920 HEMATEMESIS 12-11-2015 [facility] R1012 LEFT UPPER 12-11-2015 [facility] PAIN GROUP R1013 EPIGASTRIC 12-11-2015 [facility] PAIN [facility] E870 HYPEROSMOLA 12-03-2015 [facility]ANS HYPERNATREM GROUP IA R531 WEAKNESS 12-03-2015 [facility] K921 MELENA 11-27-2015 [facility] Q619 CYSTIC 11-27-2015 [facility] DISEASE [facility] UNSPECIFIED B1920 UNS VIRAL 11-24-2015 [facility] HEPATITIS C PHYSICIANS WITHOUT GROUP HEPATIC COMA 50260 OTHER 01-22-2015 [facility] 90189 OTHER 01-22-2015 [facility] 7840 HEADACHE 01-22-2015 [facility] 7905 OTHER 01-11-2015 [facility] ABNORMAL INTERNAL SERUM MED ENZYME LEVELS 72364 OTHER&UNSPE 01-11-2015 [facility] NONSPECIFIC INC IMMUNOLOGIC AL FINDINGS 20010 ESOPHAGEAL 01-03-2015 [place] REFLUX [facility] INTERNAL MED 7850 UNSPECIFIED 01-03-2015 [place] TACHYCARDIA INTERNAL MED 34754 UNSPECIFIED 12-30-2014 [facility] CYSTIC INC KIDNEY DISEASE 40543 HEMATURIA 12-22-2014 [facility] 78055 ABDOMINAL 12-22-2014 [place] PAIN OTHER MEDICAL SPECIFIED IMAGING ASS SITE [...] 48 DE ZA 11 17 17 11 MN 0 24 PH IN AR E MA [...] Procedure DOS Code Location Performer Comment THERAPEUT 88086 [facility] IC 7 [facility] PROPHYLAC INC INC TIC/DX INJECTION SUBQ/IM SHOULDER L3650 [facility] 7 TECHNOLOG TECHNOLOG FIG 8 IES INC IES INC ABDUCT RESTRAINE R PREFAB UNCLASSIF J3490 [facility] IED DRUGS 7 [facility] INC INC RADEX 11274 [facility] SHOULDER 7 [facility] COMPLETE INC INC MINIMUM 2 VIEWS THERAPEUT 12176 [facility] IC 7 PHYSICIAN PHYSICIAN PROPHYLAC S GROUP S GROUP TIC/DX INJECTION SUBQ/[place] [address] [facility] ABDOMEN & 7 [facility] W/O [place]OCI[place] [address] [facility] ESCOTO LIPASE 6 [facility] [place] [address] [facility] ESCOTO ABDOMEN & 6 [facility] PELVIS INC INC W/O CONTRAST MATERIAL COMPREHEN 08773 T[facility] ESCOTO SIVE 6 [facility] [place] [address] [facility] ESCOTO AMYLASE 6 [facility] INC INC URNLS DIP 33666 [facility] ESCOTO 6 [facility] STICK/TAB INC [place] [address] [facility] ESCOTO INFUSION 6 [facility] THERAPY/P INC INC ROPHYLAXI S /DX 1ST TO 1 HR THERAPEUT 42723 [facility] ESCOTO IC 6 [facility] INJECTION INC INC IV PUSH EACH NEW DRUG BLOOD 32573 [facility]OTO COUNT 6 [facility] COMPLETE INC INC AUTO&AUTO DIFRNTL WBC UNCLASSIF J3490 [facility] IED DRUGS 6 [facility] INC INC UNCLASSIF J3490 T[facility]OTO IED DRUGS 6 [facility] [place] [address] [facility] ESCOTO TROPONIN 6 [facility] QUANTITAT INC INC VICKY RADIOLOGI 71893 T[facility] ESCOTO C 6 [facility] EXAMINATI INC INC ON CHEST SINGLE VIEW FRONTAL ECG 75323 [facility] AMEZQUITA ROUTINE 6 [facility] W/LEAST P 12 LDS I&R ONLY ECG 12821 [facility] ESCOTO ROUTINE 6 [facility] ECG INC INC W/LEAST 12 LDS TRCG ONLY W/O I&R BLOOD 47086 [facility] ESCOTO COUNT 6 [facility] COMPLETE INC INC AUTO&AUTO DIFRNTL WBC CREATINE 91897 [facility] KINASE MB 6 [facility] FRACTION INC INC ONLY COMPREHEN 83274 T[facility] ESCOTO SIVE 6 [facility] METABOLIC INC INC PANEL CREATINE 74037 [facility] KINASE 6 [facility] TOTAL INC INC COLLECTIO 81118 T[facility] N VENOUS 6 [facility] BLOOD INC INC VENIPUNCT URE COMPREHEN 94054 [facility] ESCOTO SIVE 6 [facility] METABOLIC INC INC PANEL BLOOD 08524 [facility] ESCOTO COUNT 6 [facility] COMPLETE INC INC AUTO&AUTO DIFRNTL WBC BLOOD 58430 [facility] ESCOTO COUNT 6 [facility] COMPLETE INC INC AUTO&[place] [address] T[facility] ESCOTO INFUSION 6 [facility] THERAPY/P INC INC ROPHYLAXI S /DX [address] [place] [address] [place] [address] [facility] ESC[facility] ABDOMEN & 6 [facility] PELVIS INC INC W/CONTRAS T MATERIAL LOCM Q9967 [facility] ESCOTO 300-399 6 [facility] MG/ML INC INC IODINE CONCENTRA TION PER ML PROTHROMB 57729 [facility] ESCOTO IN TIME 6 [facility] INC INC THROMBOPL 61786 [facility]OTO ASTIN 6 [facility] TIME INC INC PARTIAL PLASMA/WH OLE BLOOD COMPREHEN 26581 [facility] SIVE 6 [facility] METABOLIC INC INC PANEL INJECTION J2405 [facility] ESCOTO 6 [facility] ONDANSETR INC INC ON HCL PER 1 MG URNLS DIP 54983 [facility] ESCOTO 6 [facility] STICK/TAB INC INC [place] [address] [facility] ESC[facility] LIPASE 6 [facility] INC INC COMPREHEN 97410 T[facility] ESCOTO SIVE 6 [facility] METABOLIC INC INC PANEL INF AGT G0432 [facility] AB DETECT 6 [facility] EIA TECH INC INC HIV-1&/HI V-2 SCR HEPATITIS 48829 [facility]OTO B CORE 6 [facility] ANTIBODY INC INC HBCAB TOTAL HEPATITIS 03523 [facility]IST B SURF 6 [facility] [address] [facility] ESCOTO HEPATITIS 6 [facility] B INC INC SURFACE ANTIGEN HEPATITIS 68017 [facility] ESCOTO C 6 [facility] [place] [address] [facility] ESCOTO THYROXINE 6 [facility] TOTAL INC INC BLOOD 51536 [facility] ESCOTO COUNT 6 [facility] COMPLETE INC INC AUTO&AUTO DIFRNTL WBC COMPREHEN 41696 [facility] ESCOTO SIVE 6 [facility] METABOLIC INC INC PANEL BILIRUBIN 27182 [facility] ESCOTO DIRECT 6 [facility] INC INC LIPID 34253 [facility] ESCOTO PANEL 6 [place] [address] [facility] ESCOTO THYROID 6 [facility] STIMULATI INC INC NG HORMONE TSH HEPATITIS 59450 [facility] ESCOTO A 6 [facility] ANTIBODY INC INC HAAB COLLECTIO 17397 T[facility] ESCOTO N VENOUS 6 [facility] [place] [address] [facility] ESCOTO AMYLASE 6 [facility] INC INC ELECTROEN 67676 [facility] CEPHALOGR 5 [facility] AM W/REC INC INC AWAKE&VALARIE WSY MRI BRAIN 53984 [place] [facility] BRAIN 5 MEDICAL [facility] STEM W/[place] [address] [place] [facility] HEAD/BRAI 5 MEDICAL [facility] N W/O IMAGING CONTRAST ASS MATERIAL BLOOD 24795 [facility] ESCOTO COUNT 5 [facility] COMPLETE INC INC AUTO&AUTO DIFRNTL WBC COLLECTIO 39110 [facility] ESCOTO N VENOUS 5 [facility] [place] [address] [facility] ESCOTO THYROID 5 [facility] STIMULATI INC INC NG HORMONE TSH IADNA 16932 [facility]OTO HEPATITIS 5 [facility] C QUANT INC INC & REVERSE TRANSCRIP TION 25 03808 [facility] HYDROXY 5 [facility] INCLUDES INC INC FRACTIONS IF PERFORMED CYANOCOBA 45758 [facility] ESCOTO DARREN 5 [facility] VITAMIN INC INC B-12 COMPREHEN 78665 T[facility] SIVE 5 [facility] [place] [address] [facility] ESCOTO ABDOMINAL 5 [facility] REAL INC [place] [address] TIANNA JC ABDOMINAL 5 MEDICAL [facility] REAL IMAGING TIME ASS W/[place] [address] TIANNA IBANEZUTCHER ABDOMEN & 5 MEDICAL [facility] PELVIS IMAGING W/O ASS CONTRAST MATERIAL SBSQ 32534 [facility] 5 CARE/DAY 15 MINUTES INITIAL 34465 [facility] INPATIENT 5 CONSULT NEW/ESTAB PT 20 MIN Encounters Encounter Start End Date Code Location Performer Type Date EMERGENCY 43416 [facility] 7 7 [facility] DEPARTMEN INC T VISIT LOW/MODER SEVERITY EMERGENCY 37253 [facility] CUEVAS 7 7 PHYSICIAN DEPARTMEN S, [facility] T VISIT HIGH/URGE NT SEVERITY HOSPITAL [facility] - 7 7 [facility] OUTPATIEN INC T OFFICE 72954 [facility] 7 7 [facility] T VISIT 5 INC MINUTES HOSPITAL [facility] - 7 7 [facility] OUTPATIEN INC T OFFICE 16966 [facility] 7 7 PHYSICIAN T VISIT S GROUP 25 MINUTES EMERGENCY 06150 [facility] 7 7 [facility] EMERGENCY T VISIT PHYS HIGH/URGE NT SEVERITY OFFICE 00919 [facility] OUTPATIEN 6 6 PHYSICIAN [place] T VISIT S GROUP 10 MINUTES EMERGENCY 81095 [facility] PASCAL DEPT 6 6 PHYSICIAN U VERONIKA VISIT S, [facility] HIGH SEVERITY& THREAT FUNJ EMERGENCY 40252 [facility] 6 6 [facility]IGH[facility]URGE NT SEVERITY HOSPITAL [facility] - 6 6 [facility] OUTPATIEN [facility] T EMERGENCY 54026 [facility] PASCAL 6 6 PHYSICIAN U [facility] S, [facility] T VISIT MODERATE SEVERITY HOSPITAL [facility] - 6 6 [facility] OUTPATIEN INC T EMERGENCY 09251 [facility] 6 6 [facility] T VISIT LIMITED/M INOR PROB EMERGENCY 32856 [facility] ESPOSITO DEPT 6 6 PHYSICIAN VISIT S, [facility] HIGH SEVERITY& THREAT FUN HOSPITAL [facility] - 6 6 [facility] OUTPATIEN [facility] T EMERGENCY 34352 [facility] 6 6 [facility] T VISIT MODERATE SEVERITY OFFICE 66505 [facility] OUTPATIEN 6 6 PHYSICIAN EUG T VISIT S GROUP 15 MINUTES OFFICE 01339 [facility] OUTPATIEN 6 6 PHYSICIAN EUG T VISIT S GROUP 15 MINUTES OFFICE 87752 [facility] OUTPATIEN 6 6 PHYSICIAN CAM T NEW 30 S GROUP MINUTES HOSPITAL [facility] - 6 6 [facility] OUTPATIEN [facility] TIGIST - 6 6 [facility] OUTPATIEN INC T EMERGENCY 63561 VÍCTOR DUTTON DEPT 6 6 PHYSICIAN JR PARKER VISIT [facility] HIGH SEVERITY& THREAT [facility] 16862 [facility] 6 6 [facility] HIGH/URGE NT SEVERITY HOSPITAL [facility] - 6 6 [facility] OUTPATIEN INC T OFFICE 09178 [facility] OUTPATIEN 6 6 PHYSICIAN EUG T VISIT S GROUP 15 MINUTES HOSPITAL [facility] - 6 6 [facility] OUTPATIEN INC T OFFICE 25127 [facility] OUTPATIEN 6 6 PHYSICIAN EUG T NEW 30 S GROUP MINUTES HOSPITAL [facility] - 5 5 [facility] OUTPATIEN [facility] T OFFICE 55722 [facility] 5 5 [facility] VISIT INTERNAL 25 MED MINUTES HOSPITAL [facility]IGIST - [address] [facility] OUTPATIEN [facility] OFFICE 47768 [facility] 5 5 [facility] VISIT INTERNAL 25 MED MINUTES [facility] TIGIST - [address] [facility] OUTPATIEN [facility] OFFICE 52038 [facility] 5 5 [facility] NEW 45 INTERNAL MINUTES [facility]
--- OUTSIDE RECORDS SUMMARY | 2017-05-30 12:13 | External Medical Summary Rpt ---
Author Author RAMAKRISHNA Barreto, RAMAKRISHNA [employer] Organization [employer] Address Unknown Phone Unavailable Results Amylase [Enzymatic activity/volume] in Serum or Plasma Observa Value Referen Units Interpr Notes Date tion ce etation Range Amylase 25 - 115 U/L Normal No May 30 [Enzymati informati 2017 c on in 11:30 AM activity/ source volume] data in Serum or Plasma Comprehensive metabolic 2000 panel in Serum or Plasma Observa Value Referen Units Interpr Notes Date tion ce etation Range Albumin/G 1.1 - 1.8 No Low No May 30 lobulin informati informati 2016 [Mass on in on in 11:30 AM ratio] in source source Serum or data data Plasma Albumin 3.4 - 5.0 gm/dL Normal No May 30 [Mass/vol informati 2017 ume] in on in 11:30 AM Serum or source Plasma data Alkaline 46 - 116 U/L Normal No May 30 phosphata informati 2016 se on in 11:30 AM [Enzymati source c data activity/ volume] in Serum or Plasma Bilirubin 0.2 - 1.0 mg/dL Normal No May 30 .total informati 2016 [Mass/vol on in 11:30 AM ume] in source Serum or data Plasma Urea 7 - 18 mg/dL Normal No May 30 nitrogen informati 2016 [Mass/vol on in 11:30 AM ume] in source Serum or data Plasma Calcium 8.5 - mg/dL Normal No May 30 [Mass/vol 10.1 informati 2017 ume] in on in 11:30 AM Serum or source Plasma data Chloride 98 - 107 mmoL/L Normal No May 30 [Moles/vo informati 2017 lume] in on in 11:30 AM Serum or source Plasma data Carbon 21.0 - mmoL/L Normal No May 30 dioxide, 32.0 informati 2017 total on in 11:30 AM [Moles/vo source lume] in data Serum or Plasma Creatinin 0.70 - mg/dL Normal No May 30 e 1.30 informati 2017 [Mass/vol on in 11:30 AM ume] in source Serum or data Plasma Creatinin 50 - 200 ML/MIN Normal No May 30 e renal informati 2017 clearance on in 11:30 AM source predicted data by Cockcroft -Gault formula Estimated >60 ML/MIN No REFERENCE May 30 informati RANGE: 2017 glomerula on in >60 11:30 AM r source ML/MIN/1. filtratio data 73 SQUARE n rate METERSIf (GF this patient is -A merican, then multiply theresult by 1.210. Globulin 1.3 - 3.2 gm/dL High No May 30 [Mass/vol informati 2016 ume] in on in 11:30 AM Serum source data Glucose 74 - 106 mg/dL High No May 30 [Mass/vol informati 2016 ume] in on in 11:30 AM Serum or source Plasma data Potassium 3.5 - 5.1 mmoL/L Normal No May 30 inform2016 [Moles/vo on in 11:30 AM lume] in source Serum or data Plasma Sodium 136 - 145 mmoL/L Normal No May 30 [Moles/vo informati 2016 lume] in on in 11:30 AM Serum or source Plasma data Aspartate 15 - 37 U/L High No May 30 inform2016 aminotran on in 11:30 AM sferase source [Enzymati data c activity/ volume] in Serum or Plasma Alanine 12 - 78 U/L Normal No May 30 aminotran informati 2016 sferase on in 11:30 AM [Enzymati source c data activity/ volume] in Serum or Plasma Protein 6.4 - 8.2 gm/dL High No May 30 [Mass/vol informati 2016 ume] in on in 11:30 AM Serum or source Plasma data Lipase [Enzymatic activity/volume] in Serum or Plasma Observa Value Referen Units Interpr Notes Date tion ce etation Range Lipase 73 - 393 U/L Normal No May 30 [Enzymati informati 2017 c on in 11:30 AM activity/ source volume] data in Serum or Plasma Urinalysis dipstick W Reflex Microscopic panel in Urine Observa Value Referen Units Interpr Notes Date tion ce etation Range Appeara CLEAR CLEAR No No No May 30 nce of informa informa informa 2017 Urine tion in tion in tion in 11:30 source source source AM data data data Bacteri 2+ O No No No May 30 a informa informa informa 2016 [Presen tion in tion in tion in 11:30 ce] in source source source AM Urine data data data sedimen t by Light microsc opy Bilirub NEGATIV NEG No No No May 30 in E informa informa informa 2016 [Presen tion in tion in tion in 11:30 ce] in source source source AM Urine data data data by Test strip Erythro NEGATIV NEG No No No May 30 cytes E informa informa informa 2016 [Presen tion in tion in tion in 11:30 ce] in source source source AM Urine data data data Color YELLOW YELLOW No No No May 30 of informa informa informa 2017 Urine tion in tion in tion in 11:30 source source source AM data data data Glucose NEG No No No May 30 [Mass/vol informati informati informati 2017 ume] in on in on in on in 11:30 AM Urine by source source source Test data data data strip Ketones NEGATIV NEG mg/dL No No May 30 E informa informa 2016 [Presen tion in tion in 11:30 ce] in source source AM Urine data data by Automat ed test strip Mucus NEGATIV NEG No No No May 30 [Presen E informa informa informa 2016 ce] in tion in tion in tion in 11:30 Urine source source source AM sedimen data data data t by Light microsc opy Mucus 1+ NONE No No No May 30 [Presen informa informa informa 2016 ce] in tion in tion in tion in 11:30 Urine source source source AM sedimen data data data t by Light microsc opy Nitrite NEGATIV NEG No No No May 30 E informa informa informa 2016 [Presen tion in tion in tion in 11:30 ce] in source source source AM Urine data data data by Test strip pH of 5.0 - 8.5 No Normal No May 30 Urine informati informati 2017 on in on in 11:30 AM source source data data Protein NEG mg/dL No No May 30 [Mass/vol informati informati 2017 ume] in on in on in 11:30 AM Urine by source source Automated data data test strip Specific 1.005 - No Normal No May 30 gravity 1.030 informati informati 2017 of Urine on in on in 11:30 AM source source data data Epithel OCC OCC #/hpf No No May 30 ial informa informa 2017 cells.s tion in tion in 11:30 quamous source source AM data data [Presen ce] in Urine sedimen t by Microsc opy high power field Urobili 0.2 NEG E.U./dL No No May 30 nogen informa informa 2017 [Presen tion in tion in 11:30 ce] in source source AM Urine data data by Test strip Leukocyte O wbc/hpf No No May 30 s informati informati 2017 [#/volume on in on in 11:30 AM ] in source source Urine data data Urinalysis dipstick W Reflex Microscopic panel in Urine Observa Value Referen Units Interpr Notes Date tion ce etation Range Appeara CLEAR CLEAR No No No May 30 nce of informa informa informa 2017 Urine tion in tion in tion in 11:30 source source source AM data data data Bilirub NEGATIV NEG No No No May 30 in E informa informa informa 2016 [Presen tion in tion in tion in 11:30 ce] in source source source AM Urine data data data by Test strip Erythro NEGATIV NEG No No No May 30 cytes E informa informa informa 2016 [Presen tion in tion in tion in 11:30 ce] in source source source AM Urine data data data Color YELLOW YELLOW No No No May 30 of informa informa informa 2017 Urine tion in tion in tion in 11:30 source source source AM data data data Glucose NEG No No No May 30 [Mass/vol informati informati informati 2017 ume] in on in on in on in 11:30 AM Urine by source source source Test data data data strip Ketones NEGATIV NEG mg/dL No No May 30 E informa informa 2016 [Presen tion in tion in 11:30 ce] in source source AM Urine data data by Automat ed test strip Mucus NEGATIV NEG No No No May 30 [Presen E informa informa informa 2017 ce] in tion in tion in tion in 11:30 Urine source source source AM sedimen data data data t by Light microsc opy Nitrite NEGATIV NEG No No No May 30 E informa informa informa 2016 [Presen tion in tion in tion in 11:30 ce] in source source source AM Urine data data data by Test strip pH of 5.0 - 8.5 No Normal No May 30 Urine informati inform2016 on in on in 11:30 AM source source data data Protein NEG mg/dL No No May 30 [Mass/vol informati informati 2016 ume] in on in on in 11:30 AM Urine by source source Automated data data test strip Specific 1.005 - No Normal No May 30 gravity 1.030 informati informati 2016 of Urine on in on in 11:30 AM source source data data Urobili 0.2 NEG E.U./dL No No May 30 nogen informa informa 2016 [Presen tion in tion in 11:30 ce] in source source AM Urine data data by Test strip CBC W Auto Differential panel in Blood Observa Value Referen Units Interpr Notes Date tion ce etation Range Basophils 0 - 0.2 K/MM3 Normal No May 302016 [#/volume on in 11:30 AM ] in source Blood by data Automated count Basophils 0.1 - 2.0 % Normal No May 30 / inform2016 leukocyte on in 11:30 AM s in source Blood by data Automated count Eosinophi 0.0 - 0.4 K/mm3 Normal No May 30 ls 2016 [#/volume on in 11:30 AM ] in source Blood by data Automated count Eosinophi 0.1 - % Normal No May 30 ls/100 12.0 2016 leukocyte on in 11:30 AM s in source Blood by data Automated count Granulocy 1.3 - 8.0 K/mm3 Normal No May 30 ivan inform2016 [#/volume on in 11:30 AM ] in source Blood by data Automated count Granulocy 37.0 - % Normal No May 30 ivan/100 80.0 informati 2016 leukocyte on in 11:30 AM s in source Blood by data Automated count Hematocri 42.0 - % Normal No May 30 t [Volume 52.0 2016 on in 11:30 AM Fraction] source of Blood data Hemoglobi 14.1 - g/dL Normal No May 30 n 18.0 informati 2016 [Mass/vol on in 11:30 AM ume] in source Blood data Lymphocyt 0.7 - 4.5 K/mm3 Normal No May 30 es inform2016 [#/volume on in 11:30 AM ] in source Unspecifi data ed specimen by Automated count Lymphocyt 10 - 50 % Normal No May 30 es inform2016 [#/volume on in 11:30 AM ] in source Unspecifi data ed specimen by Automated count Erythrocy 27 - 31.2 pg Normal No May 30 te mean inform2016 corpuscul on in 11:30 AM ar source hemoglobi data n [Entitic mass] Erythrocy 31.8 - g/dl Normal No May 30 te mean 35.4 2016 corpuscul on in 11:30 AM ar source hemoglobi data n concentra tion [Mass/vol ume] by Automated count Erythrocy 82.2 - fl Normal No May 30 te mean 97.8 inform2016 corpuscul on in 11:30 AM ar volume source [Entitic data volume] by Automated count Monocytes 0.1 - 1.0 K/mm3 Normal No May 30 inform2016 [#/volume on in 11:30 AM ] in source Blood by data Automated count Monocytes 1.7 - 9.3 % Normal No May 30 /100 2016 leukocyte on in 11:30 AM s in source Blood by data Automated count Platelet 7.4 - fl Low No May 30 mean 10.4 inform2016 volume on in 11:30 AM [Entitic source volume] data in Blood by Automated count Platelets 142 - 424 K/mm3 Normal No May 302016 [#/volume on in 11:30 AM ] in source Blood data Erythrocy 4.6 - 6.2 M/mm3 Normal No May 30 ivan informati 2016 [#/volume on in 11:30 AM ] in source Amniotic data fluid Erythrocy 11.5 - % Normal No May 30 te 17.5 2016 distribut on in 11:30 AM ion width source [Entitic data volume] by Automated count Leukocyte 4.8 - K/MM3 Normal No May 30 s 10.8 informati 2016 [#/volume on in 11:30 AM ] in source Blood data CT ABD and PELVIS WITHOUT Observa Value Referen Units Interpr Notes Date tion ce etation Range CT ABD \.br\ No No No No Nov 26 and informa informa informa informa 2017 PELVIS tion in tion in tion in tion in 7:16 PM WITHOUT source source source source data data data data [facility]br\ [address]br \ [place] [address]\. br\\.br \ ------- --NAME- ------- - NUMBER SEX AGE ADMIT DISC. XRAY# F/C TYPE\.b r\ BURDEN AUGUSTA [id number] M 41 11[birth year] XMB E/R\.br \ DATE OF : [birth year] M/R# [id number] PH#: [id number]\. br\ LOCATIO N: TRANSCR IBED: 7 20:09\. br\ CT ABD and PELVIS WITHOUT [id number] COMPLET ED:11/01 05/16 20:02 RLH 58020\. br\ Diagnos is: l flank pain\.b r\\.br\ PHYSICI AN: CARRI BAILON MAR\.br \\.br\\ .br\=== ======= ======= ======= ======= ======= ======= ======= ======= ======= ======= ======\ .br\ RADIOLO GY REPORT\ .br\=== ======= ======= ======= ======= ======= ======= ======= ======= ======= ======= ======\ .br\ORD ER DATE and TIME: 017 1916\.b r\\.br\ \.br\Ex aminati on: CT abdomen /pelvis kidney stone protoco l 017\.br \\.br\H istory: 41-year -old male with left flank pain.\. br\\.br \Techni que: Noncont rast 2.5 mm thick contigu ous axial CT images were obtaine d\.br\t hrough the abdomen and pelvis. Coronal images were created from the axial\. br\data . No IV contras t was adminis tered in order to increas e sensiti vity for the\.br \detect ion of stones. In order to reduce radiati on dose to the patient , either\ .br\aut omated exposur e control was employe d or the mA or kV was adjuste d by the\.br \techno logist based on patient age and weight. \.br\\. br\Comp arison: None.\. br\\.br \Findin gs:\.br \\.br\V isualiz ed portion s of the lower chest include d in this examina tion of the\.br \abdome n and pelvis reveal no signifi cant abnorma lities. \.br\\. br\Eval uation of the solid abdomin al organs is limited without IV contras t. No\.br\ obvious liver mass is identif ied. The gallbla dder is present . Gallsto diego\.br \cannot be exclude d by CT. The pancrea s and adrenal glands have a normal\ .br\alli earance . Calcifi ed granulo mas of the spleen. Indeter minate 1.2 CM low\.br \densit y lesion of the left kidney upper pole. No stones are identif ied in the\.br \kidney , ureter, or the urinary bladder . No hydrone phrosis . Huge bladder \.br\vo lume. The bowel has a normal appeara nce. Normal appendi x. No free air or\.br\ free fluid. No enlarge d lymph nodes are identif ied.\.b r\\.br\ Bone window images reveal no aggress conor lytic or sclerot ic bone lesions .\.br\\ .br\Imp ression :\.br\\ .br\1. No renal or uretera l stones. No hydrone phrosis .\.br\\ .br\2. Huge bladder volume, suggest ing bladder outlet obstruc tion.\. br\\.br \3. Indeter minate 1.2 CM low density lesion of the left kidney upper pole. Cyst\.b r\versu s mass. Nonemer gent renal ultraso und is recomme nded for further \.br\ev aluatio n.\.br\ \.br\\. br\\.br \Electr onicall y Signed By:\.br \J. SHORTY BORJA MD,RADI OLOGIST \.br\Da te/Time : 7 20:09\. br\ Bacteria identified in Urine by Culture Observa Value Referen Units Interpr Notes Date tion ce etation Range Collect VOID No No No Nov 28 ion informa informa informa 2017 method tion in tion in tion in 10:51 [Type] source source source AM of data data data Specime n STATUS PRELIMI No No No No Nov 28 NARY informa informa informa informa 2017 tion in tion in tion in tion in 10:51 source source source source AM data data data data RESULT: NO No No No No Nov 28 GROWTH informa informa informa informa 2017 1ST DAY tion in tion in tion in tion in 10:51 source source source source AM data data data data RESULTE JBG No No No No Nov 28 D BY informa informa informa informa 2017 tion in tion in tion in tion in 10:51 source source source source AM data data data data SEND Y No No No No Nov 28 PHARM/I informa informa informa informa 2017 C tion in tion in tion in tion in 10:51 source source source source AM data data data data SEND TO Y No No No Nov 28 ER informa informa informa 2017 tion in tion in tion in 10:51 source source source AM data data data STATUS FINAL No No No No Nov 28 informa informa informa informa 2017 tion in tion in tion in tion in 10:51 source source source source AM data data data data RESULT: NO No No No No Nov 28 GROWTH informa informa informa informa 2017 2ND DAY tion in tion in tion in tion in 10:51 source source source source AM data data data data RESULTE JBG No No No No Nov 28 D BY informa informa informa informa 2017 tion in tion in tion in tion in 10:51 source source source source AM data data data data SEND Y No No No No Nov 28 PHARM/I informa informa informa informa 2017 C tion in tion in tion in tion in 10:51 source source source source AM data data data data SEND TO Y No No No Nov 28 ER informa informa informa 7.1051. 2017 tion in tion in tion in [email or web address] 10:51 source source source PLETE AM data data data Urinalysis dipstick W Reflex Microscopic panel in Urine Observa Value Referen Units Interpr Notes Date tion ce etation Range Color LT. NL: No No No Nov 26 of YELL Negativ informa informa informa 2017 Urine e tion in tion in tion in 7:07 PM source source source data data data Appeara CLEAR NL: No No No Nov 26 nce of Negativ informa informa informa 2017 Urine e tion in tion in tion in 7:07 PM source source source data data data Glucose NEG NL: No No No Nov 26 Negativ informa informa informa 2017 [Mass/v e tion in tion in tion in 7:07 PM olume] source source source in data data data Urine by Test strip Bilirub NEG NL: No No No Nov 26 in Negativ informa informa informa 2017 [Presen e tion in tion in tion in 7:07 PM ce] in source source source Urine data data data by Test strip Ketones NEG NL: No No No Nov 26 Negativ informa informa informa 2017 [Presen e tion in tion in tion in 7:07 PM ce] in source source source Serum data data data or Plasma Specifi <=1.005 NL: No No No Nov 26 c 1.00 >= informa informa informa 2017 gravity 1.030 tion in tion in tion in 7:07 PM of source source source Urine data data data Hemoglo 3+ NL: No Abnorma No Nov 26 bin Negativ informa l informa 2017 [Presen e tion in tion in 7:07 PM ce] in source source Urine data data by Test strip pH of 6.0 NL: No No No Nov 26 Urine informa informa informa 2017 by Test tion in tion in tion in 7:07 PM strip source source source data data data Protein NEG NL: No No No Nov 26 Negativ informa informa informa 2017 [Presen e tion in tion in tion in 7:07 PM ce] in source source source Urine data data data by Test strip Urobili 0.2 NL: 0.2 No No No Nov 26 nogen - 1.0 informa informa informa 2016 [Mass/v tion in tion in tion in 7:07 PM olume] source source source in data data data Urine by Test strip Nitrite NEG NL: No No No Nov 26 Negativ informa informa informa 2017 [Presen e tion in tion in tion in 7:07 PM ce] in source source source Urine data data data by Test strip Leukocy NEG NL: No No { Nov 26 ivan Negativ informa informa MICROSC 2016 [#/volu e tion in tion in OPIC 7:07 PM me] in source source Blood data data See by Below Automat ed count Leukocy RARE NL: No No No Nov 26 ivan NEGATIV informa informa informa 2016 [#/volu E tion in tion in tion in 7:07 PM me] in source source source Blood data data data by Automat ed count Erythro RARE NL: No No No Nov 26 cytes NEGATIV informa informa informa 2016 [#/volu E tion in tion in tion in 7:07 PM me] in source source source Blood data data data by Automat ed count Epithel RARE NL: No No No Nov 26 ial NEGATIV informa informa informa 2017 cells E tion in tion in tion in 7:07 PM [#/area source source source ] in data data data Urine sedimen t by Microsc opy high power field Bacteri NEGATIV NL: No No No Nov 26 a E NEGATIV informa informa informa 2016 [#/area E tion in tion in tion in 7:07 PM ] in source source source Urine data data data sedimen t by Microsc opy high power field Additio VOIDED No No No No Nov 26 nal informa informa informa informa 2017 comment tion in tion in tion in tion in 7:07 PM s RFC source source source source data data data data CULTURE C&S No No Abnorma No Nov 26 SETUP ORDER informa informa l informa 2017 tion in tion in tion in 7:07 PM source source source data data data
--- OUTSIDE RECORDS SUMMARY | 2017-05-30 12:13 | External Medical Summary Rpt ---
[...] source source source data data data data [facility]br\ [address]br \ [place] [address]\. br\\.br \ ------- --NAME- ------- - NUMBER SEX AGE ADMIT DISC. XRAY# F/C TYPE\.b r\ BURDEN AUGUSTA [id number] M 41 [birth year] XMB E/R\.br \ DATE OF : [birth year] M/R# [id number] PH#: [id number]\. br\ LOCATIO N: TRANSCR IBED: 7 20:09\. br\ CT ABD and PELVIS WITHOUT [id number] COMPLET ED:11/01 05/16 20:02 RLH 96243\. br\ Diagnos is: l flank pain\.b r\\.br\ [...] 2017 tion in tion in tion in [employer] 10:51 source source source PLETE AM data [...]
--- NOTE | 2017-05-30 14:01 | RADIOLOGY REPORT PS360 ---
CT ABD PELVIS W/O CONTRAST Prostate normal. No free fluid or other findings and pelvis HISTORY: RLQ PAIN Ordering Physician: Tamra Suazo MD Patient Age: 41 years: Male TECHNIQUE: Helical CT performed through the abdomen and pelvis following oral contrast. No IV contrast COMPARISON is made to 08/09/2016 FINDINGS lung bases appear clear with no active disease. Heart normal size. Abdomen pelvis.: Lack of IV contrast decreases sensitivity. Liver, spleen, pancreas unremarkable on these noncontrast studies with no appreciable change since 2016 Adrenals unremarkable. Gallbladder. Cannot exclude sludge. No calcified stones. No biliary ductal dilatation. No retroperitoneal adenopathy nor mesenteric adenopathy. No pelvic nor inguinal nodes. No hernia. Stomach appears satisfactory small bowel. Normal caliber with oral contrast throughout extending through the right colon.. Large bowel:. Moderate Constipation throughout.. Generous Increase stool throughout large bowel. Most pronounced stool is seen at the right colon & low-lying cecum. Normal terminal ileum. No evidence of appendicitis. Appendix appears normal.. Upper normal wall thickness at rectum most likely reflects lack of distention that may require correlation developing positive stool. Pelvis. Moderately distended bladder. No pelvic mass or adenopathy Kidneys. No urinary tract calculi nor obstruction. Osseous structures, no lesions. IMPRESSION: No acute findings abdomen or pelvis Appendix appears normal. Terminal ileum unremarkable. Increased stool throughout colon suggesting a moderate constipation. Most prominent stool is seen throughout the right colon and low-lying cecum. No inflammatory changes or significant wall thickening bowel. Upper normal wall thickness rectum most likely reflects lack of distention.
[2017-05-30 14:18] VITALS: BP 122/70
[2017-05-30] MEDS ORDERED: BENTYL GENERIC10 MG PO (14:19)
== END 2017-05-30 14:35 | disposition home or self-care (01) ==
LOC: ER 11:20
PROVIDERS: Emergency Medicine
DX: R10.31 Right lower quadrant pain (principal); Z72.0 Tobacco use
CPT/HCPCS: J2405

== ENCOUNTER 2017-06-23 09:43 | Emergency (ER) | payer MEDICAID ==
[~2017-06-23] VITALS: Ht 175.3 cm; Wt 54.4 kg
[~2017-06-23 09:43] MED LIST changes: +BENTYL GENERIC10 MG PO
[2017-06-23] MEDS ORDERED: BACTRIM DS 8001 TA1 PO (09:52)
--- NOTE | 2017-06-23 09:54 | Urgent Treatment Center Report ---
History of Present Issue Date/Time Seen by Provider 06/23/17 0950 Visit Reason Pt arrived:Walked Presenting Problem:PT STATES HAVING AREA TO LEFT FOREARM LANCED TWO NIGHTS AGO AT [place] IN [place]. STATES BEING PLACED ON BACTRIM 800MG TWO TABS BID Location if Accident: Onset of symptoms date/time:06/21/17/ or onset unknown for:MEDICAL HX UNKNOWN Have you (or family members/close friends) recently traveled outside the [facility]? N If Yes, where/when: Have you had exposure to infectious disease within the past month? TB? Other? Specify: c/o left FA red and swollen "again". Reports hx of insect sting one week ago. Tried digging stinger out with sewing needle. Site became infected. Tried waiting it out. Day 5 (night before last) went to [place] ER. reports dx abscess and cellulitis. I&D to left FA. Culture completed. No packing. Prescribed 600mg ibuprofen and "bactrim 800 and told me to take two tablets twice a day". However pt has only been taking one tablet twice a day "for fear that it would upset my stomach". Pt can't remember what pharmacy the prescription was filled at so unable to verify prescription. Since then, "hole closed up overnight". Area becoming red and tender again. Denies fever, chills, malaise, joint pain, limited ROM. PMHx of IVD use and hepatitis. Reports clean for approx 2 years and adament this isn't from IV drug use. Source patient Exam Limitations no limitations ALLERGIES Coded Allergies: No Known Allergies (05/30/17) Home Medications Reported Medications SULFAMETHOXAZOLE W/TRIMETHOPRI (Bactrim Ds Tab) 2 TABLET PO BID History Medical History General CAD? No Angina: Yes [place]: No Hypertension? No Hyperlipidemia? No CHF? No DVT? No PE? No COPD? No Asthma? No Anemia? No GERD? No Gastric ulcers? No GI Bleed? No Hernia? No Thyroid Problems? No Hypothyroidism? No CVA? No Seizures? Yes Diabetes? No Renal Insuffiency? No UTI? No Stones? No BPH? No GB Disease: No Nephritic Syndrome? No Asplenia? No Hepatitis? Yes Sickle Cell Disease? No Arthritis? No Migraines? No Cataracts? No Glaucoma? No MRSA? No HIV? No TB? No Anxiety? No Depression? No Cancer? No More? 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 Immunization HX DT/Tetanus 1-4 Years Ago Surgical Hx Previous Surgery?Y BACK SURG Social History Smoking Hx Smoker: Current Every Day Smoker Tobacco: Yes Type Cigarettes Packs/day < 1 Pack Alcohol Alcohol: No Review of Systems All Other Systems Reviewed and Negative Constitutional see HPI Gastrointestinal denies nausea, denies vomiting Musculoskeletal see HPI Skin see HPI Psychiatric/Neurological denies numbness, denies tingling Physical Exam Vital Signs Vital Signs Date Time Temp Pulse Resp B/P Pulse O2 O2 Flow FiO2 Ox Delivery Rate 06/23 0950 98.3 87 20 121/82 100 General Appearance no apparent distress, unkept appearance Respiratory Status No: respiratory distress. Cardiovascular no peripheral edema Peripheral Pulses Pulses normal Yes (radial) Extremities normal range of motion (left elbow and left wrist), mild redness w/ minimal swelling left proximal anterior/ventral FA. Tender without fluctuation. No sign of previous I&D. 2x2cm and another 3x2cm near AC. Strength 5 Upper Ext (L), 5 Upper Ext (R) Neurologic alert, no motor/sensory deficits, oriented x 3 Skin see extremity Medical Decision Making LABS/Meds/Orders Pt receiving controlled substance in ED? No Results/Orders Orders Procedure Date/time Status VENOUS UPPER EXT LT 06/23 1033 Complete XRAY/CT/US XRAY/CT/US Ultrasound upper extremity (left) US Interpretation by reviewed by me, discussed w/radiologist (discussed w/ tech, Sari) US results + SVT left FA Consult MD Physician Consult Consult/PCP Dr. Suazo, ER MD Time Called 1140 Reason HPI and + SVT Comments Does not recommend stopping bactrim although wound culture negative given nature of onset. Treat for SVT w/ primary care follow up. Progress [facility] Progress Notes 1 Date 06/23/17 Time 0955 Comment Spoke to [facility] Medical Records. Will fax wound culture results. [facility] Progress Notes 2 Date 06/23/17 Time 1012 Comment Rcvd wound culture results via fax from [facility]. final result few WBCs, rare epithelial cells, no organisms. Spoke to medical records again, she will fax entire ER visit note. [facility] Progress Notes 3 Date 06/23/17 Time 1033 Comment Still waiting for records from [facility]. pt aware. Respiratory department notified of doppler left UE order. [facility] Progress Notes 4 Date 06/23/17 Time 1043 Comment pt wanting to leave because "doesn't have the time to be here". Encouraged pt to finish visit. Aware ultrasound department has already been notified and will be down shortly to get him. Discussed risk with leaving now without further evaluation and treatment. was able to convince pt to stay. Faxed rcvd from [facility] ER visit on 06/21. At that time pt admitted to IVD use but didn't report soberity per report. Same HPI was given except onset of 2 days rather than 5. dx abscess ("approx 3cm of the dorsal aspect of left forearm"), performed I&D but too small for packing, culture sent, prescribed ibuprofen and bactrim DS 800/160 two tabs PO BID x 10 days, #40, NR. Pt denies any abnormality on dorsal aspect of forearm, only anterior/ventral aspect. [facility] Progress Notes 5 Date 06/23/17 Time 1059 Comment Pt left unit for venous doppler study Departure Departure Time of Disposition 1145 Disposition DC Home or Self Care(routine) Clinical Impression Primary Impression: Superficial venous thrombosis of left arm Condition STABLE Referrals Willian CORADO,Colton Baeza (Family) Called his office for you. Follow up appt Tuesday (tomorrow) at 1045 . Patient Instructions DI for Superficial Thrombophlebitis Additional Instructions Continue bactrim per ER physician's recommendation. Read attached instructions. warm moist compresses Continue ibuprofen. I understand you have 800mg available at home. Take one every 6 hours. No more then 4 times a day and no additional ibuprofen, motrin, aleve, advil. Monitor. FU immediately for new or worsening symptoms. Discharge Counseling Counseled pt/family regarding diagnosis, test results, medications/RX, home care, follow up needs at 1156
--- NOTE | 2017-06-23 09:54 | Urgent Treatment Center Report ---
History of Present Issue Date/Time Seen by Provider 06/23/17 0950 Visit Reason Pt arrived:Walked Presenting Problem:PT STATES HAVING AREA TO LEFT FOREARM LANCED TWO NIGHTS AGO AT [place] IN [place]. STATES BEING PLACED ON BACTRIM 800MG TWO TABS BID Location if Accident: Onset of symptoms date/time:06/21/17/ or onset unknown for:MEDICAL HX UNKNOWN Have you (or family members/close friends) recently traveled outside the [facility]? N If Yes, where/when: Have you had exposure to infectious disease within the past month? TB? Other? Specify: c/o left FA red and swollen "again". Reports hx of insect sting one week ago. Tried digging stinger out with sewing needle. Site became infected. Tried waiting it out. Day 5 (night before last) went to [place] ER. reports dx abscess and cellulitis. I&D to left FA. Culture completed. No packing. Prescribed 600mg ibuprofen and "bactrim 800 and told me to take two tablets twice a day". However pt has only been taking one tablet twice a day "for fear that it would upset my stomach". Pt can't remember what pharmacy the prescription was filled at so unable to verify prescription. Since then, "hole closed up overnight". Area becoming red and tender again. Denies fever, chills, malaise, joint pain, limited ROM. PMHx of IVD use and hepatitis. Reports clean for approx 2 years and adament this isn't from IV drug use. Source patient Exam Limitations no limitations ALLERGIES Coded Allergies: No Known Allergies (05/30/17) Home Medications Reported Medications SULFAMETHOXAZOLE W/TRIMETHOPRI (Bactrim Ds Tab) 2 TABLET PO BID History Medical History General CAD? No Angina: Yes [place]: No Hypertension? No Hyperlipidemia? No CHF? No DVT? No PE? No COPD? No Asthma? No Anemia? No GERD? No Gastric ulcers? No GI Bleed? No Hernia? No Thyroid Problems? No Hypothyroidism? No CVA? No Seizures? Yes Diabetes? No Renal Insuffiency? No UTI? No Stones? No BPH? No GB Disease: No Nephritic Syndrome? No Asplenia? No Hepatitis? Yes Sickle Cell Disease? No Arthritis? No Migraines? No Cataracts? No Glaucoma? No MRSA? No HIV? No TB? No Anxiety? No Depression? No Cancer? No More? 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 Immunization HX DT/Tetanus 1-4 Years Ago Surgical Hx Previous Surgery?Y BACK SURG Social History Smoking Hx Smoker: Current Every Day Smoker Tobacco: Yes Type Cigarettes Packs/day < 1 Pack Alcohol Alcohol: No Review of Systems All Other Systems Reviewed and Negative Constitutional see HPI Gastrointestinal denies nausea, denies vomiting Musculoskeletal see HPI Skin see HPI Psychiatric/Neurological denies numbness, denies tingling Physical Exam Vital Signs Vital Signs Date Time Temp Pulse Resp B/P Pulse O2 O2 Flow FiO2 Ox Delivery Rate 06/23 0950 98.3 87 20 121/82 100 General Appearance no apparent distress, unkept appearance Respiratory Status No: respiratory distress. Cardiovascular no peripheral edema Peripheral Pulses Pulses normal Yes (radial) Extremities normal range of motion (left elbow and left wrist), mild redness w/ minimal swelling left proximal anterior/ventral FA. Tender without fluctuation. No sign of previous I&D. 2x2cm and another 3x2cm near AC. Strength 5 Upper Ext (L), 5 Upper Ext (R) Neurologic alert, no motor/sensory deficits, oriented x 3 Skin see extremity Medical Decision Making LABS/Meds/Orders Pt receiving controlled substance in ED? No Results/Orders Orders Procedure Date/time Status VENOUS UPPER EXT LT 06/23 1033 Complete XRAY/CT/US XRAY/CT/US Ultrasound upper extremity (left) US Interpretation by reviewed by me, discussed w/radiologist (discussed w/ tech, Sari) US results + SVT left FA Consult MD Physician Consult Consult/PCP Dr. Suazo, ER MD Time Called 1140 Reason HPI and + SVT Comments Does not recommend stopping bactrim although wound culture negative given nature of onset. Treat for SVT w/ primary care follow up. Progress [facility] Progress Notes 1 Date 06/23/17 Time 0955 Comment Spoke to [facility] Medical Records. Will fax wound culture results. [facility] Progress Notes 2 Date 06/23/17 Time 1012 Comment Rcvd wound culture results via fax from [facility]. final result few WBCs, rare epithelial cells, no organisms. Spoke to medical records again, she will fax entire ER visit note. [facility] Progress Notes 3 Date 06/23/17 Time 1033 Comment Still waiting for records from [facility]. pt aware. Respiratory department notified of doppler left UE order. [facility] Progress Notes 4 Date 06/23/17 Time 1043 Comment pt wanting to leave because "doesn't have the time to be here". Encouraged pt to finish visit. Aware ultrasound department has already been notified and will be down shortly to get him. Discussed risk with leaving now without further evaluation and treatment. was able to convince pt to stay. Faxed rcvd from [facility] ER visit on 06/21. At that time pt admitted to IVD use but didn't report soberity per report. Same HPI was given except onset of 2 days rather than 5. dx abscess ("approx 3cm of the dorsal aspect of left forearm"), performed I&D but too small for packing, culture sent, prescribed ibuprofen and bactrim DS 800/160 two tabs PO BID x 10 days, #40, NR. Pt denies any abnormality on dorsal aspect of forearm, only anterior/ventral aspect. [facility] Progress Notes 5 Date 06/23/17 Time 1059 Comment Pt left unit for venous doppler study Departure Departure Time of Disposition 1145 Disposition DC Home or Self Care(routine) Clinical Impression Primary Impression: Superficial venous thrombosis of left arm Condition STABLE Referrals Willian CORADO,Colton Baeza (Family) Called his office for you. Follow up appt Tuesday (tomorrow) at 1045 . Patient Instructions DI for Superficial Thrombophlebitis Additional Instructions Continue bactrim per ER physician's recommendation. Read attached instructions. warm moist compresses Continue ibuprofen. I understand you have 800mg available at home. Take one every 6 hours. No more then 4 times a day and no additional ibuprofen, motrin, aleve, advil. Monitor. FU immediately for new or worsening symptoms. Discharge Counseling Counseled pt/family regarding diagnosis, test results, medications/RX, home care, follow up needs at 1153
[2017-06-23 11:49] VITALS: BP 121/82
--- NOTE | 2017-06-23 11:49 | CARDIOVASCULAR REPORT ---
"Venous Exam Indications: 729.5 Pain in limb. 782.3 Edema. IMPRESSIONS 1. No evidence of deep vein thrombosis involving the veins of the left upper extremity 2. Superficial vein thrombosis involving the superficial veins of the left upper extremity Left upper extremity venous duplex. Doppler flow study including spectral analysis, color and mullen scale imaging. Location: Vascular laboratory. Patient status: Outpatient. CRITICAL FINDINGS - Reported to: Fred MONIQUE Read back and verified. - 06/23/17 - 1145 - +SVT LUE Tables: Venous flow and imaging: + + + |Location |Flow properties | + + + |Left internal jugular|Normal phasicity; spontaneous; compressible | + + + |Left subclavian |Normal phasicity; spontaneous; normal | | |augmentation; compressible | + + + |Left axillary |Normal phasicity; spontaneous; normal | | |augmentation; compressible | + + + |Left brachial |Normal phasicity; spontaneous; normal | | |augmentation; compressible | + + + |Left cephalic |Diminished phasicity; diminished spontaneity; | | |diminished augmentation; partially compressible | + + + |Left basilic |Normal phasicity ; spontaneous; normal | | |augmentation; compressible | + + + |Left radial |Compressible | + + + |Left ulnar |Compressible | + + + (Report amended ) Electronically signed by: Joselito Cervantes [id number]"
== END 2017-06-23 11:50 | disposition home or self-care (01) ==
LOC: UTC 09:43
DX: I82.612 Acute embolism and thrombosis of superficial veins of left upper extremity (principal); Z72.0 Tobacco use